=== PATIENT | male | born 1975 | race Caucasian/White ===

== ENCOUNTER 2020-08-27 01:50 | Observation (INO) | payer OTHER ==
[2020-08-27] MEDS ORDERED: SODIUM CHLORIDE 0.9% 1,000 ML IV ONE ×3 (01:56→02:58)
[2020-08-27] MEDS ORDERED: INSULIN REGULAR 100 UNIT/ML VIAL IV STA (01:56)
[2020-08-27] MEDS ORDERED: ONDANSETRON 4 MG/2 ML VIAL IVP STA (02:04)
[2020-08-27 02:13] LABS: Glucose,Whole Blood 566 mg/dL (75-99)
[2020-08-27 02:22] LABS: Basophils % (A) 0 %; Eosinophils # (A) 0.2 k/uL (0-0.7); Eosinophils % (A) 2 %; HCT 44.5 % (39.0-53.0); HGB 13.8 gm/dL (13.0-17.5); Lymphocytes # (A) 1.5 k/uL (1.0-4.8); Lymphocytes % (A) 15 %; MCH 29.8 pg (25.0-35.0); MCHC 31.1 g/dL (31.0-37.0); MCV 95.7 fL (80.0-100.0); Monocytes # (A) 0.5 k/uL (0-1.0); Monocytes % (A) 5 %; Neutrophils # (A) 7.3 k/uL (1.3-7.7); Neutrophils % (A) 76 %; Platelet Count 412 k/uL (150-450); RBC 4.65 m/uL (4.30-5.90); RDW 13.6 % (11.5-15.5); WBC 9.5 k/uL (3.8-10.6)
[2020-08-27 02:33] LABS: ALT 25 U/L (4-49); AST 29 U/L (17-59); African American GFR (CKD) >90 (>60 ml/min/1.73 sqM); Albumin 2.3 g/dL (3.5-5.0); Alkaline Phosphatase 168 U/L (38-126); Anion Gap 3 mmol/L; Blood Urea Nitrogen 11 mg/dL (9-20); Calcium 8.2 mg/dL (8.4-10.2); Carbon Dioxide 28 mmol/L (22-30); Chloride 100 mmol/L (98-107); Non-African American GFR(CKD) >90 (>60 ml/min/1.73 sqM); Potassium 4.5 mmol/L (3.5-5.1); Sodium 131 mmol/L (137-145); Total Bilirubin 0.3 mg/dL (0.2-1.3); Total Protein 5.3 g/dL (6.3-8.2)
--- NOTE | 2020-08-27 02:43 | ED ---
Nausea/Vomiting/Diarrhea HPI - General Chief complaint: Nausea/Vomiting/Diarrhea Stated complaint: Hyperglycemia Time Seen by Provider: 08/27/20 01:51 Source: patient, EMS Mode of arrival: EMS Limitations: no limitations - History of Present Illness Initial comments: patient's 44-year-old man who presents to be evaluated for nausea, diarrhea, and being out of insulin. Patient states he has history of diabetes,but lost his medical insurance so has no physician and has been out of insulin now for 2-3 days. He also has been having diarrhea for approximately same. he has not noted tarry stools or blood. MD complaint: nausea, diarrhea -: days(s) Description of Diarrhea: water Location: diffuse Severity: moderate Quality: cramping Consistency: intermittent Improves with: none Worsens with: none Context: other Associated Symptoms: denies other symptoms - Related Data Home Medications Medication Instructions Recorded Confirmed No Known Home Medications 08/27/20 08/27/20 Allergies Allergy/AdvReac Type Severity Reaction Status Date / Time No Known Allergies Allergy Verified 08/27/20 07:23 Review of Systems ROS Statement: Those systems with pertinent positive or pertinent negative responses have been documented in the HPI. ROS Other: All systems not noted in ROS Statement are negative. Constitutional: Reports: chills, weakness. Denies: fever Respiratory: Denies: cough, dyspnea, wheezes Cardiovascular: Denies: chest pain, palpitations, orthopnea, edema, syncope Gastrointestinal: Reports: abdominal pain, nausea, diarrhea. Denies: vomiting, melena, hematochezia Genitourinary: Denies: dysuria, hematuria Musculoskeletal: Denies: back pain Skin: Denies: rash Neurological: Denies: headache, weakness Past Medical History Past Medical History: Diabetes Mellitus History of Any Multi-Drug Resistant Organisms: None Reported Past Surgical History: No Surgical Hx Reported Past Psychological History: No Psychological Hx Reported Smoking Status: Former smoker Past Alcohol Use History: None Reported Past Drug Use History: Marijuana, Methamphetamine General Exam Limitations: no limitations General appearance: alert, in no apparent distress Head exam: Present: atraumatic, normocephalic Eye exam: Present: normal appearance. Absent: scleral icterus, conjunctival injection ENT exam: Present: mucous membranes dry Neck exam: Present: normal inspection Respiratory exam: Present: normal lung sounds bilaterally. Absent: respiratory distress, wheezes, rales, rhonchi, stridor Cardiovascular Exam: Present: regular rate, normal rhythm, normal heart sounds. Absent: systolic murmur, diastolic murmur, rubs, gallop GI/Abdominal exam: Present: soft. Absent: distended, tenderness, guarding, rebound, rigid, mass, pulsatile mass, hernia Extremities exam: Present: normal inspection, normal capillary refill. Absent: pedal edema, calf tenderness Back exam: Present: normal inspection. Absent: CVA tenderness (R), CVA tenderness (L) Neurological exam: Present: alert Skin exam: Present: warm, dry, intact, normal color. Absent: rash Course Vital Signs 08/27/20 08/27/20 08/27/20 01:52 05:24 06:57 Temperature 97.5 F L Pulse Rate 90 79 82 Respiratory 18 18 18 Rate Blood Pressure 148/86 129/81 128/68 O2 Sat by Pulse 100 98 97 Oximetry 08/27/20 07:25 Temperature Pulse Rate 82 Respiratory 18 Rate Blood Pressure 128/68 O2 Sat by Pulse 97 Oximetry Medical Decision Making - Medical Decision Making this patient's 44-year-old man who phoned EMS for diarrhea and generalized weakness, bleeding he was dehydrated. The patient not havemarkedly elevated blood sugar. The patient also currently homeless and with no ability to obtain insulin. The patient therefore will be admitted until he is able see a director social and have some insulin dispensed and also see if they're able to arrange a fpc for patient - Lab Data Result diagrams: 08/27/20 02:00 08/27/20 04:29 Lab Results 08/27/20 08/27/20 08/27/20 Range/Units 02:00 02:00 02:00 WBC 9.5 (3.8-10.6) k/uL RBC 4.65 (4.30-5.90) m/uL Hgb 13.8 (13.0-17.5) gm/dL Hct 44.5 (39.0-53.0) % MCV 95.7 (80.0-100.0) fL MCH 29.8 (25.0-35.0) pg MCHC 31.1 (31.0-37.0) g/dL RDW 13.6 (11.5-15.5) % Plt Count 412 (150-450) k/uL Neutrophils % 76 % Lymphocytes % 15 % Monocytes % 5 % Eosinophils % 2 % Basophils % 0 % Neutrophils # 7.3 (1.3-7.7) k/uL Lymphocytes # 1.5 (1.0-4.8) k/uL Monocytes # 0.5 (0-1.0) k/uL Eosinophils # 0.2 (0-0.7) k/uL Basophils # 0.0 (0-0.2) k/uL Sodium 131 L (137-145) mmol/L Potassium 4.5 (3.5-5.1) mmol/L Chloride 100 (98-107) mmol/L Carbon Dioxide 28 (22-30) mmol/L Anion Gap 3 mmol/L BUN 11 (9-20) mg/dL Creatinine 0.77 (0.66-1.25) mg/dL Est GFR (CKD-EPI)AfAm >90 (>60 ml/min/1.73 sqM) Est GFR (CKD-EPI)NonAf >90 (>60 ml/min/1.73 sqM) Glucose 592 H* (74-99) mg/dL POC Glucose (mg/dL) (75-99) mg/dL POC Glu Dairy Clerk ID Plasma Lactic Acid Jason 1.2 (0.7-2.0) mmol/L Calcium 8.2 L (8.4-10.2) mg/dL Total Bilirubin 0.3 (0.2-1.3) mg/dL AST 29 (17-59) U/L ALT 25 (4-49) U/L Alkaline Phosphatase 168 H (38-126) U/L Total Protein 5.3 L (6.3-8.2) g/dL Albumin 2.3 L (3.5-5.0) g/dL Acetone, Qual Positive (Negative) 08/27/20 08/27/20 08/27/20 Range/Units 02:12 04:29 07:02 WBC (3.8-10.6) k/uL RBC (4.30-5.90) m/uL Hgb (13.0-17.5) gm/dL Hct (39.0-53.0) % MCV (80.0-100.0) fL MCH (25.0-35.0) pg MCHC (31.0-37.0) g/dL RDW (11.5-15.5) % Plt Count (150-450) k/uL Neutrophils % % Lymphocytes % % Monocytes % % Eosinophils % % Basophils % % Neutrophils # (1.3-7.7) k/uL Lymphocytes # (1.0-4.8) k/uL Monocytes # (0-1.0) k/uL Eosinophils # (0-0.7) k/uL Basophils # (0-0.2) k/uL Sodium 134 L (137-145) mmol/L Potassium 3.4 L (3.5-5.1) mmol/L Chloride 108 H (98-107) mmol/L Carbon Dioxide 25 (22-30) mmol/L Anion Gap 1 mmol/L BUN 10 (9-20) mg/dL Creatinine 0.67 (0.66-1.25) mg/dL Est GFR (CKD-EPI)AfAm >90 (>60 ml/min/1.73 sqM) Est GFR (CKD-EPI)NonAf >90 (>60 ml/min/1.73 sqM) Glucose 294 H (74-99) mg/dL POC Glucose (mg/dL) 566 H 280 H (75-99) mg/dL POC Glu Dairy Clerk ID Camila Amor Taylor Plasma Lactic Acid Jason (0.7-2.0) mmol/L Calcium 7.2 L (8.4-10.2) mg/dL Total Bilirubin (0.2-1.3) mg/dL AST (17-59) U/L ALT (4-49) U/L Alkaline Phosphatase (38-126) U/L Total Protein (6.3-8.2) g/dL Albumin (3.5-5.0) g/dL Acetone, Qual Negative (Negative) - EKG Data -: EKG Interpreted by In EKG shows normal: sinus rhythm, axis (normal), intervals (WV interval 144 ms, QTC 525 ms, both are normal. QRS duration 136 ms, prolonged consistent with right bundle-branch block), QRS complexes (right bundle-branch block pattern.) Rate: normal (rate 89 bpm) Disposition Clinical Impression: Hyperglycemia Disposition: ADMITTED IP TO THIS [facility] Condition: Fair Referrals: None,Stated [Primary Care Provider] - 1-2 days
[2020-08-27 02:44] LABS: Glucose 592 mg/dL (74-99)
[2020-08-27 05:06] LABS: African American GFR (CKD) >90 (>60 ml/min/1.73 sqM); Anion Gap 1 mmol/L; Blood Urea Nitrogen 10 mg/dL (9-20); Calcium 7.2 mg/dL (8.4-10.2); Carbon Dioxide 25 mmol/L (22-30); Chloride 108 mmol/L (98-107); Glucose 294 mg/dL (74-99); Non-African American GFR(CKD) >90 (>60 ml/min/1.73 sqM); Potassium 3.4 mmol/L (3.5-5.1); Sodium 134 mmol/L (137-145)
[2020-08-27] MEDS ORDERED: ACETAMINOPHEN TAB 325 MG TAB PO PRN (07:01)
[2020-08-27] MEDS ORDERED: NALOXONE 0.4 MG/ML 1 ML VIAL IV PRN (07:01)
[2020-08-27 07:03] LABS: Glucose,Whole Blood 280 mg/dL (75-99)
[2020-08-27] MEDS ORDERED: Potassium Replacement Protocol 1 EACH MISC MISCELLANE PRN (07:26)
[2020-08-27 08:10] LABS: Appearance,Urine Clear (Clear); Bilirubin,Urine Negative (Negative); Blood,Urine Small (Negative); Color,Urine Light Yellow; Glucose,Urine (UA) 4+ (Negative); Ketones,Urine Negative (Negative); Leukocyte Esterase,Urine Negative (Negative); Mucus,Urine Rare /hpf; Nitrite,Urine Negative (Negative); Protein,Urine 2+ (Negative); RBC,Urine 2 /hpf (0-5); Specific Gravity,Urine 1.017 (1.001-1.035); Urobilinogen,Urine <2.0 mg/dL (<2.0); WBC,Urine 1 /hpf (0-5)
[2020-08-27] MEDS: SODIUM CHLORIDE 0.9% 1,000 ML IV SCH ×2 (08:44→17:18)
[2020-08-27 09:00] VITALS: RESP 14
[2020-08-27] MEDS ORDERED: INSULN ASP PRT/INSULIN ASPART 100 UNIT/ML 10 ML VIAL SQ SCH ×2 (09:15→17:30)
[2020-08-27] MEDS ORDERED: POTASSIUM CHLORIDE ER 20 MEQ TAB.ER PO STA (09:30)
[2020-08-27] MEDS ORDERED: INFLUENZA VACCINE (6 MOS+) 60 MCG/0.5 ML SYRINGE IM ONE (09:43)
[2020-08-27] MEDS ORDERED: PNEUMOCOCCAL VACC-PNEUMOVAX 23 25 MCG/0.5 ML VIAL IM ONE (09:43)
--- NOTE | 2020-08-27 09:49 | P.HPIM ---
History of Present Illness H&P Date: 08/27/20 This H&P will also serve as a discharge summary. Is a 44-year-old male with PMH of type 1 diabetes mellitus diagnosed since seventh grade that presents to the hospital for hyperglycemia and chronic d iarrhea. Patient reports feeling lightheaded and being out of insulin over the last 2 days, he realized his blood sugars were too high which prompted this admission. He reports chronic diarrhea with meals. He denies any hematochezia. He also reports neuropathic pain in his bilateral lower extremities. Patient reports recently losing insurance coverage. Patient states that he is homeless. He has been bouncing from place to place and staying with friends but does not currently have a place to stay. He reports polyuria and polydipsia. Patient states he takes 7030 insulin 25 units in the morning and 15 units at night. Patient states that his glucometer broke. He does not have any diabetic supplies. He denies any headache, lower extremity edema, vomiting, fever or chills, cough, chest pain, shortness of breath, palpitations, changes in urination. No changes in appetite or weight. In the ED, his vital signs are stable. CBC was unremarkable. CMP showed sodium of 131, glucose of 592, alkaline phosphatase 168. Urinalysis showed 2+ protein, 4+ glucose, small blood. Acetone was initially positive and negative on repeat. He was given 6 units of IV insulin and admitted for further management and observation. Review of Systems Pertinent positives and negatives as discussed in HPI, a complete review of systems was performed and all other systems are negative. 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 History of Any Multi-Drug Resistant Organisms: None Reported Past Surgical History: No Surgical Hx Reported Past Anesthesia/Blood Transfusion Reactions: No Reported Reaction, Motion Sickness Additional Past Anesthesia/Blood Transfusion Reaction / Comment(s): Pt has clausterphobia Past Psychological History: No Psychological Hx Reported Additional Psychological History / Comment(s): Pt states he is homeless, sleeps in his car or on people's couches. He states his glucometer is broken, he ran out of insulin 2-3 days ago. He states he does not have a PCP and has not had one for months. He states he has no money. Smoking Status: Former smoker Past Alcohol Use History: None Reported Additional Past Alcohol Use History / Comment(s): Pt started smoking in 1996 and states he was a light smoker, he quit in 2018. Past Drug Use History: Marijuana, Methamphetamine Additional Drug Use History / Comment(s): Pt states he occasionally uses marijuana and meth. He last used 2 days ago. - Past Family History Father Family Medical History: No Reported History Additional Family Medical History / Comment(s): Father is healthy Mother Family Medical History: Myocardial Infarction ([place]) Additional Family Medical History / Comment(s): Mother of a [place] in her 60s. Medications and Allergies Home Medications Medication Instructions Recorded Confirmed Type Alcohol Antiseptic Pads [Alcohol 1 each TP AC-TID #90 med..pad 08/27/20 Rx Swabs] Blood Sugar Diagnostic [Test 1 each MC AC-TID #90 strip 08/27/20 Rx Strips] Insuln Asp Prt/Insulin Aspart 15 unit SQ AC-SUPPER #2 vial 08/27/20 Rx [NovoLOG MIX 70-30 VIAL] Insuln Asp Prt/Insulin Aspart 25 unit SQ AC-BRKFST #2 vial 08/27/20 Rx [NovoLOG MIX 70-30 VIAL] Lancets 1 each MC AC-TID #90 each 08/27/20 Rx Syringe and Needle,Insulin,1Ml 1 syr SQ BID-W/MEALS #60 syr 08/27/20 Rx [Insulin Syringe 30G 5/16" 1ml] Allergies Allergy/AdvReac Type Severity Reaction Status Date / Time No Known Allergies Allergy Verified 08/27/20 07:23 Physical Exam Vitals: Vital Signs Temp Pulse Pulse Resp BP BP Pulse Ox 08/27/20 09:00 98 F 86 14 103/58 100 08/27/20 07:25 82 18 128/68 97 08/27/20 06:57 82 18 128/68 97 08/27/20 05:24 79 18 129/81 98 08/27/20 01:52 97.5 F L 90 18 148/86 100 Intake and Output 08/26/20 08/27/20 08/27/20 22:59 06:59 14:59 Other: Voiding Method Toilet # Voids 1 Weight 54.431 kg General: [non toxic], [no distress], [appears at stated age] Derm: [warm], [dry] Head: [atraumatic], [normocephalic], [symmetric] Eyes: [EOMI], [no lid lag], [anicteric sclera] Mouth: [no lip lesion], [mucus membranes moist] Cardiovascular: [S1S2 reg], [no murmur], [positive posterior tibial pulse bilateral], Lungs: [CTA bilateral], [no rhonchi, no rales] , [no accessory muscle use] Abdominal: [soft], [ nontender to palpation], [no guarding], [no appreciable organomegaly] Ext: [no gross muscle atrophy], [no edema], [no contractures] Neuro: [ CN II-XI grossly intact], [no focal neuro deficits] Psych: [Alert], [oriented], [appropriate affect] Results CBC & Chem 7: 08/27/20 02:00 08/27/20 04:29 Labs: Abnormal Lab Results - Last 24 Hours (Table) 08/27/20 08/27/20 08/27/20 Range/Units 02:00 02:00 02:12 Sodium 131 L (137-145) mmol/L Potassium (3.5-5.1) mmol/L Chloride (98-107) mmol/L Glucose 592 H* (74-99) mg/dL POC Glucose (mg/dL) 566 H (75-99) mg/dL Calcium 8.2 L (8.4-10.2) mg/dL Alkaline Phosphatase 168 H (38-126) U/L Total Protein 5.3 L (6.3-8.2) g/dL Albumin 2.3 L (3.5-5.0) g/dL Urine Protein 2+ H (Negative) Urine Glucose (UA) 4+ H (Negative) Urine Blood Small H (Negative) Urine Mucus Rare H (None) /hpf 08/27/20 08/27/20 Range/Units 04:29 07:02 Sodium 134 L (137-145) mmol/L Potassium 3.4 L (3.5-5.1) mmol/L Chloride 108 H (98-107) mmol/L Glucose 294 H (74-99) mg/dL POC Glucose (mg/dL) 280 H (75-99) mg/dL Calcium 7.2 L (8.4-10.2) mg/dL Alkaline Phosphatase (38-126) U/L Total Protein (6.3-8.2) g/dL Albumin (3.5-5.0) g/dL Urine Protein (Negative) Urine Glucose (UA) (Negative) Urine Blood (Negative) Urine Mucus (None) /hpf Assessment and Plan Assessment: Diabetes mellitus with hyperglycemia Pseudohyponatremia Hypokalemia Peripheral neuropathy Chronic diarrhea Patient's current blood glucose has decreased from 592 to 280. He reports taking 7030 insulin 25 units in the morning and 15 units at bedtime. Tolerating diet well. Plans: He'll be placed back on home dose of insulin. Hypoglycemic p recautions. Regular Accu-Cheks. Consult diabetes education. Consult hospice social worker for homelessness and diabetic supplies. His sodium is improved from 131-134 with correction of his blood sugars. His sodium is within normal limits when corrected for hyperglycemia. Plans: Continue to monitor. Repeat BMP this afternoon. Potassium 3.4. Plans: Replace via protocol. Repeat BMP this afternoon. Plans: Tylenol as needed for pain. Plans: Patient will need adequate follow-up in the outpatient setting. This is being chronic for a number of years. He would benefit from colonoscopy. DVT prophylaxis: [SCD boots] Discussed with: [Patient] Anticipated discharge: [Today] Anticipated discharge place: [Long-Term] A total of [35] minutes was spent on the care of this complex patient more than 50% of the time was spent in counseling and care coordination. Patient names his brother Shen decision-maker if he can't make decisions for himself. Patient would like to be full code.
[2020-08-27 11:35] LABS: Glucose,Whole Blood 224 mg/dL (75-99)
[2020-08-27 12:19] LABS: African American GFR (CKD) >90 (>60 ml/min/1.73 sqM); Anion Gap 0 mmol/L; Blood Urea Nitrogen 9 mg/dL (9-20); Calcium 7.4 mg/dL (8.4-10.2); Carbon Dioxide 27 mmol/L (22-30); Chloride 106 mmol/L (98-107); Glucose 248 mg/dL (74-99); Non-African American GFR(CKD) >90 (>60 ml/min/1.73 sqM); Potassium 3.6 mmol/L (3.5-5.1); Sodium 133 mmol/L (137-145)
[2020-08-27 14:11] VITALS: BP 117/75; PULSE 85; TEMP 98.4
[2020-08-27 16:40] LABS: Glucose,Whole Blood 146 mg/dL (75-99)
== END 2020-08-27 18:11 | disposition home or self-care (01) ==
LOC: EC 01:50 → 1SOBS 07:01
PROVIDERS: ADMIT Internal Medicine; ATTEND Internal Medicine
DX: E10.65 Type 1 diabetes mellitus with hyperglycemia (principal); R11.2 Nausea with vomiting, unspecified; K52.9 Noninfective gastroenteritis and colitis, unspecified; E87.6 Hypokalemia; G62.9 Polyneuropathy, unspecified; Z59.0 Homelessness; Z79.4 Long term (current) use of insulin; Z82.49 Family history of ischemic heart disease and other diseases of the circulatory system; Z87.891 Personal history of nicotine dependence
CPT/HCPCS: 96361; 96374; 99285; 36415; 93005; 80053; 80048; 82009; 83605; 85025; 81001; 90732; 90686; G0378; G0008; G0009; J2405

== ENCOUNTER 2020-08-30 11:48 | Inpatient (IN) | payer OTHER ==
[2020-08-30] MEDS ORDERED: ASPIRIN 81 MG PO STA (11:54)
[2020-08-30] MEDS ORDERED: NITROGLYCERIN OINT 1 INCH/GM PACKET TOPICAL STA (11:54)
[2020-08-30] MEDS ORDERED: SODIUM CHLORIDE 0.9% 1,000 ML IV ONE (11:54)
--- NOTE | 2020-08-30 11:57 | ED ---
General Adult HPI - General Chief complaint: Chest Pain Stated complaint: chest pain Time Seen by Provider: 08/30/20 11:50 Source: patient, RN notes reviewed, old records reviewed Mode of arrival: EMS Limitations: no limitations - History of Present Illness Initial comments: This is a 44-year-old male with a past medical history significant for diabetes. Patient also states he used to be a smoker up until about 2 years ago. Patient also states he has a family history of heart disease. Patient states this morning started having left-sided chest pain and it got worse so he decided come in. Patient states he was not short of breath and it did not radiate anywhere however taking nitroglycerin on the way and did improve pain. Patient states the pain is back again. Patient denies any recent fever chills or cough per patient states his sugars have been well over 500 last couple of days. Patient denies any abdominal pain patient denies any nausea vomiting but states he does have diarrhea. Patient denies any headache patient denies numbness weakness. Patient denies any near syncope or dizziness. - Related Data Previous Rx's Medication Instructions Recorded Insuln Asp Prt/Insulin Aspart 15 unit SQ AC-SUPPER #2 vial 08/27/20 [NovoLOG MIX 70-30 VIAL] Insuln Asp Prt/Insulin Aspart 25 unit SQ AC-BRKFST #2 vial 08/27/20 [NovoLOG MIX 70-30 VIAL] Allergies Allergy/AdvReac Type Severity Reaction Status Date / Time No Known Allergies Allergy Verified 08/30/20 12:25 Review of Systems ROS Statement: Those systems with pertinent positive or pertinent negative responses have been documented in the HPI. ROS Other: All systems not noted in ROS Statement are negative. 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 History of Any Multi-Drug Resistant Organisms: None Reported Past Surgical History: No Surgical Hx Reported Past Anesthesia/Blood Transfusion Reactions: No Reported Reaction, Motion Sickness Additional Past Anesthesia/Blood Transfusion Reaction / Comment(s): Pt has clausterphobia Past Psychological History: No Psychological Hx Reported Smoking Status: Former smoker Past Alcohol Use History: None Reported Past Drug Use History: Marijuana, Methamphetamine - Past Family History Father Family Medical History: No Reported History Additional Family Medical History / Comment(s): Father is healthy Mother Family Medical History: Myocardial Infarction ([place]) Additional Family Medical History / Comment(s): Mother of a [place] in her 60s. General Exam - General Exam Comments Initial Comments: GENERAL: Patient is well-developed and well-nourished. Patient is nontoxic and well- hydrated and is in mild distress. ENT: Neck is soft and supple. No significant lymphadenopathy is noted. Oropharynx is clear. Moist mucous membranes. Neck has full range of motion without eliciting any pain. EYES: The sclera were anicteric and conjunctiva were pink and moist. Extraocular movements were intact and pupils were equal round and reactive to light. Eyelids were unremarkable. PULMONARY: Unlabored respirations. Good breath sounds bilaterally. No audible rales rhonchi or wheezing was noted. CARDIOVASCULAR: Patient is tachycardic at about 105 beats a minute. ABDOMEN: Soft and nontender with normal bowel sounds. SKIN: Skin is clear with no lesions or rashes and otherwise unremarkable. NEUROLOGIC: Patient is alert and oriented x3. Cranial nerves II through XII are grossly intact. Motor and sensory are also intact. Normal speech, volume and content. Symmetrical smile. MUSCULOSKELETAL: Normal extremities with adequate strength and full range of motion. LYMPHATICS: No significant lymphadenopathy is noted PSYCHIATRIC: Normal psychiatric evaluation. Limitations: no limitations Course Vital Signs 08/30/20 08/30/20 11:51 12:33 Temperature 98.2 F Pulse Rate 96 Respiratory 18 Rate Blood Pressure 124/82 O2 Sat by Pulse 99 Oximetry Medical Decision Making - Medical Decision Making EKG shows sinus tachycardia at 108 bpm DC interval 160 QRS is under 24 QT interval 370 QTC is 495. Chest x-ray shows no acute abnormality. I gave the patient NovoLog 12 units for the elevated sugar glucose. I spoke with some physicians agreed to admit the patient admitted the patient I consult cardiology. I repeated the patient's troponins every 3 hours. And I put the patient on NovoLog sliding scale - Lab Data Result diagrams: 08/30/20 12:11 08/30/20 12:11 Lab Results 08/30/20 08/30/20 08/30/20 Range/Units 12:01 12:11 12:11 WBC 10.9 H (3.8-10.6) k/uL RBC 3.97 L (4.30-5.90) m/uL Hgb 12.3 L (13.0-17.5) gm/dL Hct 37.8 L (39.0-53.0) % MCV 95.3 (80.0-100.0) fL MCH 30.9 (25.0-35.0) pg MCHC 32.4 (31.0-37.0) g/dL RDW 13.4 (11.5-15.5) % Plt Count 377 (150-450) k/uL Neutrophils % 76 % Lymphocytes % 15 % Monocytes % 6 % Eosinophils % 2 % Basophils % 1 % Neutrophils # 8.3 H (1.3-7.7) k/uL Lymphocytes # 1.6 (1.0-4.8) k/uL Monocytes # 0.6 (0-1.0) k/uL Eosinophils # 0.2 (0-0.7) k/uL Basophils # 0.1 (0-0.2) k/uL PT 9.3 (9.0-12.0) sec INR 0.9 (<1.2) APTT 22.5 (22.0-30.0) sec Sodium (137-145) mmol/L Potassium (3.5-5.1) mmol/L Chloride (98-107) mmol/L Carbon Dioxide (22-30) mmol/L Anion Gap mmol/L BUN (9-20) mg/dL Creatinine (0.66-1.25) mg/dL Est GFR (CKD-EPI)AfAm (>60 ml/min/1.73 sqM) Est GFR (CKD-EPI)NonAf (>60 ml/min/1.73 sqM) Glucose (74-99) mg/dL POC Glucose (mg/dL) 519 H (75-99) mg/dL POC Glu Clinical Esthetician ID Gonzalez, Elizabeth Calcium (8.4-10.2) mg/dL Magnesium (1.6-2.3) mg/dL Total Bilirubin (0.2-1.3) mg/dL AST (17-59) U/L ALT (4-49) U/L Alkaline Phosphatase (38-126) U/L Troponin I (0.000-0.034) ng/mL Total Protein (6.3-8.2) g/dL Albumin (3.5-5.0) g/dL Acetone, Qual (Negative) 08/30/20 08/30/20 Range/Units 12:11 12:11 WBC (3.8-10.6) k/uL RBC (4.30-5.90) m/uL Hgb (13.0-17.5) gm/dL Hct (39.0-53.0) % MCV (80.0-100.0) fL MCH (25.0-35.0) pg MCHC (31.0-37.0) g/dL RDW (11.5-15.5) % Plt Count (150-450) k/uL Neutrophils % % Lymphocytes % % Monocytes % % Eosinophils % % Basophils % % Neutrophils # (1.3-7.7) k/uL Lymphocytes # (1.0-4.8) k/uL Monocytes # (0-1.0) k/uL Eosinophils # (0-0.7) k/uL Basophils # (0-0.2) k/uL PT (9.0-12.0) sec INR (<1.2) APTT (22.0-30.0) sec Sodium 135 L (137-145) mmol/L Potassium 4.3 (3.5-5.1) mmol/L Chloride 109 H (98-107) mmol/L Carbon Dioxide 27 (22-30) mmol/L Anion Gap -1 mmol/L BUN 19 (9-20) mg/dL Creatinine 0.67 (0.66-1.25) mg/dL Est GFR (CKD-EPI)AfAm >90 (>60 ml/min/1.73 sqM) Est GFR (CKD-EPI)NonAf >90 (>60 ml/min/1.73 sqM) Glucose 530 H* (74-99) mg/dL POC Glucose (mg/dL) (75-99) mg/dL POC Glu Clinical Esthetician ID Calcium 7.7 L (8.4-10.2) mg/dL Magnesium 2.2 (1.6-2.3) mg/dL Total Bilirubin 0.3 (0.2-1.3) mg/dL AST 27 (17-59) U/L ALT 23 (4-49) U/L Alkaline Phosphatase 153 H (38-126) U/L Troponin I <0.012 (0.000-0.034) ng/mL Total Protein 4.7 L (6.3-8.2) g/dL Albumin 2.0 L (3.5-5.0) g/dL Acetone, Qual Negative (Negative) Disposition Clinical Impression: Chest pain, Hyperglycemia Disposition: ADMITTED IP TO THIS HOSP Referrals: None,Stated [Primary Care Provider] - 1-2 days Time of Disposition: 13:40
[2020-08-30 12:02] LABS: Glucose,Whole Blood 519 mg/dL (75-99)
[2020-08-30 12:26] LABS: Basophils # (A) 0.1 k/uL (0-0.2); Basophils % (A) 1 %; Eosinophils # (A) 0.2 k/uL (0-0.7); Eosinophils % (A) 2 %; HCT 37.8 % (39.0-53.0); HGB 12.3 gm/dL (13.0-17.5); Lymphocytes # (A) 1.6 k/uL (1.0-4.8); Lymphocytes % (A) 15 %; MCH 30.9 pg (25.0-35.0); MCHC 32.4 g/dL (31.0-37.0); MCV 95.3 fL (80.0-100.0); Mean Platelet Volume 7.4; Monocytes # (A) 0.6 k/uL (0-1.0); Monocytes % (A) 6 %; Neutrophils # (A) 8.3 k/uL (1.3-7.7); Neutrophils % (A) 76 %; Platelet Count 377 k/uL (150-450); RBC 3.97 m/uL (4.30-5.90); RDW 13.4 % (11.5-15.5); WBC 10.9 k/uL (3.8-10.6)
[2020-08-30 12:36] LABS: ALT 23 U/L (4-49); AST 27 U/L (17-59); African American GFR (CKD) >90 (>60 ml/min/1.73 sqM); Alkaline Phosphatase 153 U/L (38-126); Anion Gap -1 mmol/L; Blood Urea Nitrogen 19 mg/dL (9-20); Calcium 7.7 mg/dL (8.4-10.2); Carbon Dioxide 27 mmol/L (22-30); Chloride 109 mmol/L (98-107); Magnesium 2.2 mg/dL (1.6-2.3); Non-African American GFR(CKD) >90 (>60 ml/min/1.73 sqM); Potassium 4.3 mmol/L (3.5-5.1); Sodium 135 mmol/L (137-145); Total Bilirubin 0.3 mg/dL (0.2-1.3); Total Protein 4.7 g/dL (6.3-8.2)
[2020-08-30 12:42] LABS: Glucose 530 mg/dL (74-99); INR 0.9 (<1.2); Partial Thromboplastin Time 22.5 sec (22.0-30.0); Prothrombin Time 9.3 sec (9.0-12.0)
--- NOTE | 2020-08-30 12:45 | XR ---
EXAMINATION TYPE: XR chest 2V DATE OF EXAM: 08/30/2020 COMPARISON: None INDICATION: Chest pain TECHNIQUE: Frontal and lateral views of the chest are obtained. FINDINGS: The heart size is normal. The pulmonary vasculature is normal. There may be a small density measuring 0.8 cm in the left midlung. CT chest could be performed for ad ditional evaluation. Lung wasserman are otherwise clear. IMPRESSION: 1. No acute pulmonary process. 2. Possible nodule measuring 0.8 cm left midlung. Additional evaluation with CT chest is recommended.
[2020-08-30] MEDS ORDERED: INSULIN ASPART (NovoLOG) 100 UNIT/ML VIAL SQ ONE (13:11)
[2020-08-30] MEDS ORDERED: NITROGLYCERIN SL TABS 0.4 MG TAB SUBLINGUAL PRN (13:40)
[2020-08-30 13:52] LABS: Glucose,Whole Blood 534 mg/dL (75-99)
[2020-08-30] MEDS ORDERED: traMADol 50 MG TAB PO PRN (14:39)
[2020-08-30] MEDS ORDERED: ONDANSETRON 4 MG/2 ML VIAL IVP PRN (14:39)
[2020-08-30] MEDS ORDERED: NALOXONE 0.4 MG/ML 1 ML VIAL IV PRN (14:39)
--- NOTE | 2020-08-30 14:44 | P.HPIM ---
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 In the ER he underwent an extensive evaluation. His initial vital signs are within normal limits. Initial laboratory analysis showed white blood cell count of 10.9, hemoglobin 12.3, sodium 135, chloride 1.9, glucose 5:30 patient was not acidotic and anion gap was normal. Initial troponin was negative and EKG sinus tachycardia at a rate of 108 with possible intraventricular conduction delay but no signs of ST segment elevation. He received aspirin and nitro. He reported subjective improvement in pain with nitroglycerin. Of note patient was hospitalized here on 08/27 after running out of his insulin. He was noted to be homeless without insurance cards or ID cards. He was given a one-month supply of insulin is provided by the hospital. Patient seen and examined at bedside. He reports that after leaving the hospital he was laying down and started having right-sided chest pain. He reports chronic shortness of breath, nausea, intermittent dizziness, int ermittent lightheadedness, and tingling down in his hands. It is difficult to discern whether or not these are new or old symptoms. He does state that her shortness of breath with their prior to his chest discomfort. He denies any family history of coronary artery disease. He reports that his chest pain is worse with exertion but also occurs at rest. He reports that he has pain when he is moving his right shoulder. He is asking for something for pain and something to eat or drink. We had an extensive conversation that if he is having ongoing chest pain he should not be eating or drinking anything in case he would require emergent revascularization. Review of Systems Pertinent positives and negatives as discussed in HPI, a complete review of systems was performed and all other systems are negative. 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 History of Any Multi-Drug Resistant Organisms: None Reported Past Surgical History: No Surgical Hx Reported Past Anesthesia/Blood Transfusion Reactions: No Reported Reaction, Motion Sickness Additional Past Anesthesia/Blood Transfusion Reaction / Comment(s): Pt has clausterphobia Past Psychological History: No Psychological Hx Reported Smoking Status: Former smoker Past Alcohol Use History: None Reported Past Drug Use History: Marijuana, Methamphetamine - Past Family History Father Family Medical History: No Reported History Additional Family Medical History / Comment(s): Father is healthy Mother Family Medical History: Myocardial Infarction (MA) Additional Family Medical History / Comment(s): Mother of a MA in her 60s. Medications and Allergies Home Medications Medication Instructions Recorded Confirmed Type Insuln Asp Prt/Insulin Aspart 15 unit SQ AC-SUPPER #2 vial 08/27/20 08/30/20 Rx [NovoLOG MIX 70-30 VIAL] Insuln Asp Prt/Insulin Aspart 25 unit SQ AC-BRKFST #2 vial 08/27/20 08/30/20 Rx [NovoLOG MIX 70-30 VIAL] Allergies Allergy/AdvReac Type Severity Reaction Status Date / Time No Known Allergies Allergy Verified 08/30/20 12:25 Physical Exam Osteopathic Statement: *. No significant issues noted on an osteopathic structural exam other than those noted in the History and Physical/Consult. Vitals: Vital Signs Temp Pulse Resp BP Pulse Ox 08/30/20 14:14 146/110 08/30/20 13:47 96 18 142/92 97 08/30/20 12:33 96 18 124/82 99 08/30/20 11:51 98.2 F Intake and Output 08/29/20 08/30/20 08/30/20 23:59 06:59 14:59 Other: Weight 56.699 kg General: non toxic, no distress, appears older than stated age, unkempt Derm: warm, dry Head: atraumatic, normocephalic, symmetric Eyes: EOMI, no lid lag, anicteric sclera, pupils equal round reactive to light ENT: Nose and ears atraumatic, no thrush, no pharyngeal erythema Neck: No thyromegaly, no cervical lymphadenopathy, trachea midline, supple Mouth: no lip lesion, mucus membranes moist Cardiovascular: S1S2 reg, no murmur, positive posterior tibial pulse bilateral, no edema, capillary refill less than 2 seconds, positive chest pain reproducible to palpation of right chest wall Lungs: clear to ascultation bilateral, no ronchi, no rales, no wheeze, no accessory muscle use Abdominal: soft, nontender to palpation, no guarding, no appreciable organomegaly, normal bowel sounds Ext: no gross muscle atrophy, muscle strength muscle strength 5 out of 5 in all 4 extremities, no contractures Neuro: CN II-XI grossly intact, light touch intact all 4 extremities, finger to nose within normal limits, Psych: Alert, oriented, appropriate affect Results CBC & Chem 7: 08/30/20 12:11 08/30/20 12:11 Labs: Abnormal Lab Results - Last 24 Hours (Table) 08/30/20 08/30/20 08/30/20 Range/Units 12:01 12:11 12:11 WBC 10.9 H (3.8-10.6) k/uL RBC 3.97 L (4.30-5.90) m/uL Hgb 12.3 L (13.0-17.5) gm/dL Hct 37.8 L (39.0-53.0) % Neutrophils # 8.3 H (1.3-7.7) k/uL Sodium 135 L (137-145) mmol/L Chloride 109 H (98-107) mmol/L Glucose 530 H* (74-99) mg/dL POC Glucose (mg/dL) 519 H (75-99) mg/dL Calcium 7.7 L (8.4-10.2) mg/dL Alkaline Phosphatase 153 H (38-126) U/L Total Protein 4.7 L (6.3-8.2) g/dL Albumin 2.0 L (3.5-5.0) g/dL 08/30/20 Range/Units 13:44 WBC (3.8-10.6) k/uL RBC (4.30-5.90) m/uL Hgb (13.0-17.5) gm/dL Hct (39.0-53.0) % Neutrophils # (1.3-7.7) k/uL Sodium (137-145) mmol/L Chloride (98-107) mmol/L Glucose (74-99) mg/dL POC Glucose (mg/dL) 534 H (75-99) mg/dL Calcium (8.4-10.2) mg/dL Alkaline Phosphatase (38-126) U/L Total Protein (6.3-8.2) g/dL Albumin (3.5-5.0) g/dL Chest x-ray: report reviewed Thrombosis Risk Factor Assmnt - DVT/VTE Prophylaxis DVT/VTE Prophylaxis: Pharmacologic Prophylaxis ordered Assessment and Plan Assessment: Chest pain -Suspect noncardiac -Aspirin, trend troponins -Cardiology evaluation -Echocardiogram -Telemetry -Check lipid profile - nitro Diabetes mellitus type 1 with hyperglycemia -Restart 70/30 insulin with improved patient's blood sugars significantly with 1 dose last hospitalization -Follow blood sugars -Has just met with tobacco educator and dietitian Possible pulmonary nodule -Recommend outpatient CT of the chest Social stressors -Homelessness: Met with manager social services last hospital stay, patient does not have an ID card and therefore cannot be seen at a homeless longterm. [facility] as he does not have [facility]. Patient has been instructed multiple times that he needs to obtain identification. GERD -Start IV PPI The patient is placed in observation with an anticipated less than 2 midnight stay for evaluation of chest pain. Surrogate decision-maker: Shen DVT prophylaxis: SCDs Discussed with: Patient, nursing, ED physician Anticipated discharge date: in AM Anticipated discharge place: Return to friends home A total of 45 minutes was spent on the care of this complex patient more than 50% of the time was spent in counseling and care coordination.
[2020-08-30] MEDS: SODIUM CHLORIDE 0.9% 1,000 ML IV SCH (15:08)
[2020-08-30] MEDS: PANTOPRAZOLE 40 MG/10 ML VIAL IVP SCH (15:08)
[2020-08-30 16:32] LABS: Glucose,Whole Blood 323 mg/dL (75-99)
[2020-08-30] MEDS: NITROGLYCERIN OINT 1 INCH/GM PACKET TOPICAL SCH (16:57)
[2020-08-30] MEDS: INSULN ASP PRT/INSULIN ASPART 100 UNIT/ML 10 ML VIAL SQ SCH (16:58)
[2020-08-30] MEDS ORDERED: INSULIN ASPART (NovoLOG) 100 UNIT/ML VIAL SQ SCH (17:30)
[2020-08-30 20:10] LABS: Glucose,Whole Blood 169 mg/dL (75-99)
[2020-08-30 22:37] LABS: Glucose,Whole Blood 81 mg/dL (75-99)
[2020-08-30 23:31] LABS: Hemoglobin A1C 15.6 % (4.0-6.0)
[2020-08-31] MEDS: NITROGLYCERIN OINT 1 INCH/GM PACKET TOPICAL SCH ×5 (00:06→23:57)
[2020-08-31 00:54] LABS: Glucose,Whole Blood 88 mg/dL (75-99)
[2020-08-31 03:51] LABS: Glucose,Whole Blood 77 mg/dL (75-99)
[2020-08-31] MEDS: SODIUM CHLORIDE 0.9% 1,000 ML IV SCH ×3 (06:10→17:17)
[2020-08-31 06:27] LABS: Glucose,Whole Blood 97 mg/dL (75-99)
[2020-08-31 08:09] LABS: HCT 32.4 % (39.0-53.0); HGB 10.5 gm/dL (13.0-17.5); MCH 30.3 pg (25.0-35.0); MCHC 32.4 g/dL (31.0-37.0); MCV 93.7 fL (80.0-100.0); Mean Platelet Volume 6.7; Platelet Count 367 k/uL (150-450); RBC 3.46 m/uL (4.30-5.90); RDW 13.5 % (11.5-15.5); WBC 13.8 k/uL (3.8-10.6)
[2020-08-31 08:43] LABS: African American GFR (CKD) >90 (>60 ml/min/1.73 sqM); Anion Gap -2 mmol/L; Blood Urea Nitrogen 15 mg/dL (9-20); Calcium 7.1 mg/dL (8.4-10.2); Carbon Dioxide 28 mmol/L (22-30); Chloride 109 mmol/L (98-107); Cholesterol 227 mg/dL (<200); Glucose 99 mg/dL (74-99); HDL Cholesterol 68 mg/dL (40-60); LDL Cholesterol,Calculated 123 mg/dL (0-99); Non-African American GFR(CKD) >90 (>60 ml/min/1.73 sqM); Potassium 4.3 mmol/L (3.5-5.1); Sodium 135 mmol/L (137-145); Triglycerides 178 mg/dL (<150)
[2020-08-31] MEDS ORDERED: ASPIRIN 325 MG TAB PO SCH (09:00)
[2020-08-31 09:01] LABS: Glucose,Whole Blood 112 mg/dL (75-99)
--- NOTE | 2020-08-31 09:59 | CONS ---
CONSULTATION CHIEF COMPLAINT: Chest pain. Cornell is a 44-year-old gentleman who is admitted to the hospital with history of diabetes, who is admitted to hospital with poorly-controlled blood sugars and chest pain. He describes his chest discomfort as precordial, mild intensity, came on at rest and radiated to his back. It was not associated with diaphoresis. There was no shortness of breath. It resolved after sublingual nitroglycerin. There is no prior history of coronary artery disease or congestive heart failure. His admission EKG shows sinus rhythm with nonspecific ST-T wave changes. He has had 3 sets of troponins that are all within normal limits. LABS: Show that the white cell count is elevated. Hemoglobin is 10.5. Potassium is 4.3, creatinine is 0.67. Given the unexplained chest pain, I advised the patient to undergo a stress echo and I will also obtain a 2D echo. I will decide on further course of action based on these findings. PAST MEDICAL HISTORY: Significant for diabetes. CURRENT MEDICATIONS: Include insulin. ALLERGIES: No known drug allergies. FAMILY HISTORY: Negative for premature coronary artery disease. SOCIAL HISTORY: Negative for current smoking, EtOH abuse, or drug abuse. REVIEW OF SYSTEMS: HEENT: Unremarkable. CARDIAC: As described above. RESPIRATORY: As described above. GI: Negative. GENITOURINARY: Negative. ALLERGY: Negative. SKIN: Negative. MUSCULOSKELETAL: Significant for arthritis. PSYCHOSOCIAL: Negative. DERMATOLOGICAL: Negative. CONSTITUTIONAL: Negative. ONCOLOGICAL: Negative. WIRE GALVANIZER: Negative. Rest of the system review is not relevant. PHYSICAL EXAMINATION: On exam, patient is comfortable at rest. Vital signs are stable. O2 saturation is 95% on room air. There is no jugular venous distention. Chest exam reveals good air entry bilaterally. Heart exam reveals first and second heart sounds. No gallop. Abdomen is soft. Exam of the extremities did not reveal any edema. Peripheral pulses are felt. ASSESSMENT: 1. Precordial chest pain. 2. Severe uncontrolled diabetes. PLAN: I am going to obtain an echo and stress echo. If these are abnormal, I will perform cardiac catheterization on him. MMODL / IJN: [id number] /
--- NOTE | 2020-08-31 10:14 | P.PN ---
Subjective Progress Note Date: 08/31/20 Pt is doing very well reporting improvement in chest pain, abdominal pain, n/v. Reports feeling very hungry. Objective - Vital Signs Vital signs: Vital Signs Temp 98.6 F 08/31/20 08:50 Pulse 88 08/31/20 08:50 Resp 16 08/31/20 08:50 BP 117/65 08/31/20 08:50 Pulse Ox 95 08/31/20 08:50 Intake & Output 08/30/20 08/31/20 08/31/20 18:59 06:59 18:59 Weight 56.699 kg 62.7 kg Other: Voiding Method Toilet # Voids 1 - Exam Gen: awake, alert HEENT: normocephalic, atraumatic, good hearing acuity, moist mucous membranes Resp: CTAB, good air exchange, no accessory muscle use, no wheezes, crackles, rhonchi CVS: good distal perfusion x 4, RRR, no murmurs, clicks, gallops GI: soft, NTTP, ND : no SPT, no CVAT, villasenor catheter is not present MSK: no pitting edema, no clubbing Neuro: non-focal, no sensory deficits, appropriate tone Psych: cooperative, euthymic mood - Labs CBC & Chem 7: 08/31/20 07:04 08/31/20 07:04 Labs: Abnormal Lab Results - Last 24 Hours (Table) 08/30/20 08/30/20 08/30/20 Range/Units 12:01 12:11 12:11 WBC 10.9 H (3.8-10.6) k/uL RBC 3.97 L (4.30-5.90) m/uL Hgb 12.3 L (13.0-17.5) gm/dL Hct 37.8 L (39.0-53.0) % Neutrophils # 8.3 H (1.3-7.7) k/uL D-Dimer (<0.60) mg/L FEU Sodium 135 L (137-145) mmol/L Chloride 109 H (98-107) mmol/L Glucose 530 H* (74-99) mg/dL POC Glucose (mg/dL) 519 H (75-99) mg/dL Hemoglobin A1c (4.0-6.0) % Calcium 7.7 L (8.4-10.2) mg/dL Alkaline Phosphatase 153 H (38-126) U/L Total Protein 4.7 L (6.3-8.2) g/dL Albumin 2.0 L (3.5-5.0) g/dL Triglycerides (<150) mg/dL Cholesterol (<200) mg/dL LDL Cholesterol, Calc (0-99) mg/dL HDL Cholesterol (40-60) mg/dL 08/30/20 08/30/20 08/30/20 Range/Units 12:11 12:11 13:44 WBC (3.8-10.6) k/uL RBC (4.30-5.90) m/uL Hgb (13.0-17.5) gm/dL Hct (39.0-53.0) % Neutrophils # (1.3-7.7) k/uL D-Dimer 0.74 H (<0.60) mg/L FEU Sodium (137-145) mmol/L Chloride (98-107) mmol/L Glucose (74-99) mg/dL POC Glucose (mg/dL) 534 H (75-99) mg/dL Hemoglobin A1c 15.6 H (4.0-6.0) % Calcium (8.4-10.2) mg/dL Alkaline Phosphatase (38-126) U/L Total Protein (6.3-8.2) g/dL Albumin (3.5-5.0) g/dL Triglycerides (<150) mg/dL Cholesterol (<200) mg/dL LDL Cholesterol, Calc (0-99) mg/dL HDL Cholesterol (40-60) mg/dL 08/30/20 08/30/20 08/31/20 Range/Units 16:31 19:51 07:04 WBC (3.8-10.6) k/uL RBC (4.30-5.90) m/uL Hgb (13.0-17.5) gm/dL Hct (39.0-53.0) % Neutrophils # (1.3-7.7) k/uL D-Dimer (<0.60) mg/L FEU Sodium 135 L (137-145) mmol/L Chloride 109 H (98-107) mmol/L Glucose (74-99) mg/dL POC Glucose (mg/dL) 323 H 169 H (75-99) mg/dL Hemoglobin A1c (4.0-6.0) % Calcium 7.1 L (8.4-10.2) mg/dL Alkaline Phosphatase (38-126) U/L Total Protein (6.3-8.2) g/dL Albumin (3.5-5.0) g/dL Triglycerides 178 H (<150) mg/dL Cholesterol 227 H (<200) mg/dL LDL Cholesterol, Calc 123 H (0-99) mg/dL HDL Cholesterol 68 H (40-60) mg/dL 08/31/20 08/31/20 Range/Units 07:04 08:57 WBC 13.8 H (3.8-10.6) k/uL RBC 3.46 L (4.30-5.90) m/uL Hgb 10.5 L (13.0-17.5) gm/dL Hct 32.4 L (39.0-53.0) % Neutrophils # (1.3-7.7) k/uL D-Dimer (<0.60) mg/L FEU Sodium (137-145) mmol/L Chloride (98-107) mmol/L Glucose (74-99) mg/dL POC Glucose (mg/dL) 112 H (75-99) mg/dL Hemoglobin A1c (4.0-6.0) % Calcium (8.4-10.2) mg/dL Alkaline Phosphatase (38-126) U/L Total Protein (6.3-8.2) g/dL Albumin (3.5-5.0) g/dL Triglycerides (<150) mg/dL Cholesterol (<200) mg/dL LDL Cholesterol, Calc (0-99) mg/dL HDL Cholesterol (40-60) mg/dL Assessment and Plan Assessment: 1. Chest pain 2. Type 1 diabetes with hyperglycemia 3. Pulmonary nodule 4. GERD with esophagitis 44-year-old homeless man with GERD and type 1 diabetes presented with hyperglycemia and chest pain without DKA in the context of medication noncompliance due to not being able to obtain his insulin. Chest pain -Suspect noncardiac -Aspirin, trend troponins -Cardiology evaluation -Echocardiogram -Telemetry -Check lipid profile - nitro Diabetes mellitus type 1 with hyperglycemia -Restart 70/30 insulin with improved patient's blood sugars significantly with 1 dose last hospitalization -Follow blood sugars -Has just met with family living educator and dietitian Possible pulmonary nodule -Recommend outpatient CT of the chest Social stressors -Homelessness: Met with professor of social work last hospital stay, patient does not have an ID card and therefore cannot be seen at a homeless [facility]. [facility] as he does not have [facility]. Patient has been instructed multiple times that he needs to obtain identification. GERD -Start IV PPI The patient is placed in observation with an anticipated less than 2 midnight stay for evaluation of chest pain. Surrogate decision-maker: Shen DVT prophylaxis: SCDs Discussed with: Patient, nursing, ED physician Anticipated discharge date: in AM Anticipated discharge place: Return to friends home A total of 45 minutes was spent on the care of this complex patient more than 50% of the time was spent in counseling and care coordination.
[2020-08-31] MEDS ORDERED: DOBUTamine DRIP for NUC MED 500 MG in DEXTROSE/WATER 1 250ML.BAG IV ONE (12:00)
[2020-08-31] MEDS ORDERED: ATROPINE SULFATE 0.1 MG/ML 10ML SYRINGE ONE (12:10)
[2020-08-31 12:36] LABS: Glucose,Whole Blood 148 mg/dL (75-99)
[2020-08-31] MEDS: INSULN ASP PRT/INSULIN ASPART 100 UNIT/ML 10 ML VIAL SQ SCH ×2 (12:37→17:17)
[2020-08-31] MEDS: PANTOPRAZOLE 40 MG/10 ML VIAL IVP SCH (12:38)
[2020-08-31] MEDS: ASPIRIN 81 MG PO SCH (12:38)
[2020-08-31 13:37] VITALS: BMI 23.0
--- NOTE | 2020-08-31 13:40 | ECHOF ---
Referral Reason:chest pain MEASUREMENTS -------- HEIGHT: 165.1 cm WEIGHT: 63.0 kg BP: RVIDd: 3.1 cm (< 3.3) IVSd: 1.3 cm (0.6 - 1.1) LVIDd: 4.5 cm (3.9 - 5.3) LVPWd: 1.1 cm (0.6 - 1.1) IVSs: 1.3 cm LVIDs: 3.5 cm LVPWs: 1.5 cm LA Diam: 4.2 cm (2.7 - 3.8) LAESV Index (A-L): 28.25 ml/m Ao Diam: 3.4 cm (2.0 - 3.7) AV Cusp: 2.0 cm (1.5 - 2.6) MV EXCURSION: 14.126 mm (> 18.000) MV EF SLOPE: 74 mm/s (70 - 150) EPSS: 1.3 cm MV E Vu: 0.50 m/s MV DecT: 176 ms MV A Vu: 0.96 m/s MV E/A Ratio: 0.52 RAP: 5.00 mmHg RVSP: 27.86 mmHg FINDINGS -------- Sinus rhythm. This was a technically good study. The left ventricular size is normal. There is mild concentric left ventricular hypertrophy. Overa ll left ventricular systolic function is normal with, an EF between 55 - 60 %. The right ventricle is normal in size. The left atrium is mildly dilated. LA is midly dilated 29-33ml/m2. The right atrial size is normal. There is mild aortic valve sclerosis. Mild mitral regurgitation is present. Mild tricuspid regurgitation present. Right ventricular systolic pressure is normal at < 35 mmHg. There is no pulmonic regurgitation present. The aortic root size is normal. There is a small, generalized pericardial effusion present. CONCLUSIONS -------- 1. The left ventricular size is normal. 2. There is mild concentric left ventricular hypertrophy. 3. The right ventricle is normal in size. 4. The left atrium is mildly dilated. 5. LA is midly dilated 29-33ml/m2. 6. The right atrial size is normal. 7. There is mild aortic valve sclerosis. 8. Mild mitral regurgitation is present. 9. Mild tricuspid regurgitation present. 10. There is no pulmonic regurgitation present. 11. The aortic root size is normal. 12. There is a small, generalized pericardial effusion present. DIGITAL MEDIA DESIGNER: Sherlyn Garcia RDCS
--- NOTE | 2020-08-31 14:04 | ECHOS ---
STRESS ECHOCARDIOGRAM INDICATIONS: Chest pain. BASELINE HEART RATE: 81 BASELINE BLOOD PRESSURE: 160/90 MAXIMUM HEART RATE: 128 MAXIMUM BLOOD PRESSURE: 181/84 85% MPHR: 150 100% MPHR: 177 MAXIMUM STAGE REACHED: 4 TOTAL EXERCISE TIME: 14:42 CLINICAL INFORMATION: Chest pain. Baseline EKG revealed normal sinus rhythm without significant ST changes. With dobutamine administration and subsequently as per protocol, atropine administration, heart rate went up to 128 beats per minute which is less than 85% of predicted maximal. The patient, therefore, did not achieve 85% of his predicted maximal heart rate with the dobutamine and atropine combination. EKG was unremarkable. He was asymptomatic. By EKG criteria, this is an inconclusive stress test because of inadequate chronotropic response. Baseline echo images revealed normal wall motion and wall thickening of all segments. At a peak heart rate of 128 beats per minute which is less than 85% of predicted maximal, he had repeat echo images performed. There is good contractility of left ventricle noted with good augmentation of the contractility involving all segments. However, the heart rate was only 128 beats per minute. Therefore, this is an inconclusive dobutamine stress echo. There is a small generalized pericardial effusion noted. FINAL IMPRESSION: 1. By EKG criteria, this is an inconclusive dobutamine stress test because of inadequate chronotropic response. 2. Inconclusive dobutamine stress echo because of inadequate chronotropic response but at a heart rate of 128 beats per minute, there was good augmentation of left ventricular contractility noted. MMODL / IJN: [id number] /
[2020-08-31 16:44] LABS: Glucose,Whole Blood 119 mg/dL (75-99)
[2020-08-31 20:52] LABS: Glucose,Whole Blood 92 mg/dL (75-99)
[2020-09-01 06:05] LABS: Glucose,Whole Blood 76 mg/dL (75-99)
[2020-09-01] MEDS: NITROGLYCERIN OINT 1 INCH/GM PACKET TOPICAL SCH (06:29)
[2020-09-01] MEDS: INSULN ASP PRT/INSULIN ASPART 100 UNIT/ML 10 ML VIAL SQ SCH ×3 (06:29→19:37)
[2020-09-01 07:45] LABS: Glucose,Whole Blood 121 mg/dL (75-99)
[2020-09-01] MEDS ORDERED: INSULN ASP PRT/INSULIN ASPART 100 UNIT/ML 10 ML VIAL SQ SCH (08:00)
[2020-09-01] MEDS: ASPIRIN 81 MG PO SCH (08:32)
[2020-09-01] MEDS: PANTOPRAZOLE 40 MG/10 ML VIAL IVP SCH (08:32)
--- NOTE | 2020-09-01 09:11 | XR ---
Right hip HISTORY: Trauma and pain 2 views of the right hip There is lucency noted consistent with an intertrochanteric nondisplaced fracture of the proximal rig ht femur. No dislocation. IMPRESSION: Proximal right femoral fracture
[2020-09-01] MEDS: HYDROmorphone 1 MG/ML 1 ML SYRINGE IVP PRN (09:34)
[2020-09-01] MEDS ORDERED: NITROGLYCERIN SL TABS 0.4 MG TAB SUBLINGUAL PRN (10:04)
[2020-09-01] MEDS ORDERED: ALPRAZolam 0.25 MG TAB PO PRN (10:04)
[2020-09-01] MEDS ORDERED: ALPRAZolam 0.5 MG TAB PO PRN (10:04)
--- NOTE | 2020-09-01 10:36 | P.PN ---
Subjective Progress Note Date: 09/01/20 CHIEF COMPLAINT: Chest pain HISTORY OF PRESENT ILLNESS: Patient examined this morning at the bedside. He denies chest pain or pressure. Denies shortness of breath. Patient underwent dobutamine chest x-ray yesterday which was inconclusive secondary to patient being unable to reach his target heart rate. Echocardiogram completed yesterday reveals ejection fraction between 55 and 60%, mild mitral regurgitation, and mild tricuspid regurgitation. Patient was walking to the bathroom this morning when he states his leg gave out on him and he fell. Patient was complaining of right hip pain after the fall. X-ray was completed revealing proximal right femoral fracture. PHYSICAL EXAM: VITAL SIGNS: Reviewed. GENERAL: Well-developed in no acute distress. NECK: Supple. No JVD or thyromegaly LUNGS: Respirations even and unlabored. Lungs essentially clear to auscultation bilaterally. HEART: Regular rate and rhythm. S1 and S2 heard. EXTREMITIES: Normal range of motion. No clubbing or cyanosis. Peripheral pulses intact. No lower extremity edema ASSESSMENT: Chest pain, troponins negative 3 Diabetes, Type I Right proximal femoral fracture, status post fall PLAN: Orthopedics has been consulted secondary to right femur fracture. Await evaluation and recommendations Patient to undergo cardiac catheterization tomorrow morning with Dr. Andujar Nurse practitioner note has been reviewed by physician. Signing provider agrees with the documented findings, assessment, and plan of care. Objective - Vital Signs Vital signs: Vital Signs Temp 99.1 F 09/01/20 08:31 Pulse 94 09/01/20 08:31 Resp 18 09/01/20 08:31 BP 113/64 09/01/20 08:31 Pulse Ox 95 09/01/20 08:31 Intake & Output 08/31/20 09/01/20 09/01/20 18:59 06:59 18:59 Intake Total 4052 420 320 Balance 4052 420 320 Weight 62.7 kg 62 kg Intake: Intake, IV Titration 1040 Amount Sodium Chloride 0.9% 1, 1040 000 ml @ 130 mls/hr IV . Q7H42M [facility] Rx#:[id number] Oral [phone] Other: Voiding Method Toilet Toilet # Voids 2 2 - Labs CBC & Chem 7: 08/31/20 07:04 08/31/20 07:04 Labs: Abnormal Lab Results - Last 24 Hours (Table) 08/31/20 08/31/20 09/01/20 Range/Units 12:34 16:42 07:38 POC Glucose (mg/dL) 148 H 119 H 121 H (75-99) mg/dL
--- NOTE | 2020-09-01 10:57 | P.PN ---
Subjective Progress Note Date: 09/01/20 Pt had a mechanical fall today resulting in femur fracture. Pt reports significant pain, improved with dilaudid. Objective - Vital Signs Vital signs: Vital Signs Temp 99.1 F 09/01/20 08:31 Pulse 94 09/01/20 08:31 Resp 18 09/01/20 08:31 BP 113/64 09/01/20 08:31 Pulse Ox 95 09/01/20 08:31 Intake & Output 08/31/20 09/01/20 09/01/20 18:59 06:59 18:59 Intake Total 4052 420 320 Balance 4052 420 320 Weight 62.7 kg 62 kg Intake: Intake, IV Titration 1040 Amount Sodium Chloride 0.9% 1, 1040 000 ml @ 130 mls/hr IV . Q7H42M [facility] Rx#:[id number] Oral [phone] Other: Voiding Method Toilet Toilet # Voids 2 2 - Exam Gen: awake, alert HEENT: normocephalic, atraumatic, good hearing acuity, moist mucous membranes Resp: CTAB, good air exchange, no accessory muscle use, no wheezes, crackles, rhonchi CVS: good distal perfusion x 4, RRR, no murmurs, clicks, gallops GI: soft, NTTP, ND : no SPT, no CVAT, villasenor catheter is not present MSK: no pitting edema, no clubbing Neuro: non-focal, no sensory deficits, appropriate tone Psych: cooperative, euthymic mood - Labs CBC & Chem 7: 08/31/20 07:04 08/31/20 07:04 Labs: Abnormal Lab Results - Last 24 Hours (Table) 08/31/20 08/31/20 09/01/20 Range/Units 12:34 16:42 07:38 POC Glucose (mg/dL) 148 H 119 H 121 H (75-99) mg/dL Assessment and Plan Assessment: 1. Chest pain 2. Type 1 diabetes with hyperglycemia 3. Pulmonary nodule 4. GERD with esophagitis 5. Right Femur Fracture 44-year-old homeless man with GERD and type 1 diabetes presented with hyperglycemia and chest pain without DKA in the context of medication noncompliance due to not being able to obtain his insulin. Chest pain -Suspect noncardiac -Aspirin, trend troponins -Cardiology evaluation -Echocardiogram -Telemetry -Check lipid profile - nitro #Femur Fracture - pain control: dilaudid 1mg q3h PRN - stool softener PRN - ortho c/s Diabetes mellitus type 1 with hyperglycemia -Restart 70/30 insulin with improved patient's blood sugars significantly with 1 dose last hospitalization -Follow blood sugars -Has just met with school vocational educator and dietitian Possible pulmonary nodule -Recommend outpatient CT of the chest Social stressors -Homelessness: Met with manager social responsibility last hospital stay, patient does not have an ID card and therefore cannot be seen at a homeless intermediate. [facility] as he does not have [facility]. Patient has been instructed multiple times that he needs to obtain identification. GERD -Start IV PPI Surrogate decision-maker: Shen DVT prophylaxis: SCDs Discussed with: Patient, nursing
[2020-09-01 11:43] LABS: Glucose,Whole Blood 105 mg/dL (75-99)
--- NOTE | 2020-09-01 12:16 | P.CNOR ---
History of Present Illness - [facility] Consult date: 09/01/20 Consult reason: fracture History of present illness: Patient is 44 yo male seen at bedside this morning in consultation for right hip fracture. He was admitted two days ago for chest pain and has continued to be ev aluated for cardiac issues. He is scheduled for cardiac cath tomorrow, 09/02/20. He was walking to the bathroom this morning when his legs gave way and he fell to his right hip. He had immediate pain and xrays obtained showing a right non displaced IT fracture. He continues to have pain. He denies numbness or calf pain. He has no other current complaints. He is homeless and insulin dependent. Review of Systems All systems: negative Constitutional: Denies chills, Denies fever Eyes: denies blurred vision, denies pain Ears, nose, mouth and throat: Denies headache, Denies sore throat Cardiovascular: Denies chest pain, Denies shortness of breath Respiratory: Denies cough Gastrointestinal: Denies abdominal pain, Denies diarrhea, Denies nausea, Denies vomiting Musculoskeletal: Denies myalgias Integumentary: Denies pruritus, Denies rash Neurological: Denies numbness, Denies weakness Psychiatric: Denies anxiety, Denies depression Endocrine: Denies fatigue, Denies weight change Past Medical History Past Medical History: Diabetes Mellitus, GERD/Reflux, Pneumonia Additional Past Medical History / Comment(s): 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 History of Any Multi-Drug Resistant Organisms: None Reported Past Surgical History: No Surgical Hx Reported Past Anesthesia/Blood Transfusion Reactions: No Reported Reaction, Motion Sickness Additional Past Anesthesia/Blood Transfusion Reaction / Comm: Pt has clausterphobia Past Psychological History: No Psychological Hx Reported Smoking Status: Former smoker Past Alcohol Use History: None Reported Past Drug Use History: Marijuana, Methamphetamine - Past Family History Father Family Medical History: No Reported History Additional Family Medical History / Comment(s): Father is healthy Mother Family Medical History: Myocardial Infarction (PR) Additional Family Medical History / Comment(s): Mother of a PR in her 60s. Medications and Allergies Home Medications Medication Instructions Recorded Confirmed Type Insuln Asp Prt/Insulin Aspart 15 unit SQ AC-SUPPER #2 vial 08/27/20 08/30/20 Rx [NovoLOG MIX 70-30 VIAL] Insuln Asp Prt/Insulin Aspart 25 unit SQ AC-BRKFST #2 vial 08/27/20 08/30/20 Rx [NovoLOG MIX 70-30 VIAL] Allergies Allergy/AdvReac Type Severity Reaction Status Date / Time No Known Allergies Allergy Verified 08/30/20 12:25 Physical Examination Inspection of right hip and leg show no deformity. No open wounds, erythema or echymoses. Hip range of motion is not tested due to fracture. Neurovascular status is grossly intact throughout right lower extremity with motor and sensation. There is no knee tenderness or effusion. There is no pain with range of motion of the knee. Calf is soft and nontender. 2+ dorsalis pedis and less than 2 second capillary refill is present. Results x-ray of the right hip shows a nondisplaced intertrochanteric femur fracture. - Labs Labs: Abnormal Lab Results - Last 24 Hours (Table) 08/31/20 08/31/20 09/01/20 Range/Units 12:34 16:42 07:38 POC Glucose (mg/dL) 148 H 119 H 121 H (75-99) mg/dL 09/01/20 Range/Units 11:42 POC Glucose (mg/dL) 105 H (75-99) mg/dL H & H 08/30/20 08/31/20 Range/Units 12:11 07:04 Hgb 12.3 L 10.5 L (13.0-17.5) gm/dL Hct 37.8 L 32.4 L (39.0-53.0) % Coagulation 08/30/20 Range/Units 12:11 INR 0.9 (<1.2) Result Diagrams: 08/31/20 07:04 08/31/20 07:04 - Diagnostic results Hip x-ray: report reviewed, image reviewed Assessment and Plan (1) Intertrochanteric fracture of femur Narrative/Plan: Plan will be to proceed with surgical intervention including gamma nail for his right intertrochanteric femur fracture. He's currently scheduled for cardiac catheterization tomorrow morning 09/02/2020. Will discuss with Dr. Do and cardiology/internal medicine when would be appropriate to proceed with surgical intervention. We'll request medical and cardiac clearance. Continue pain management, DVT prophylaxis, and bedrest. Further orders and recommendations to be forthcoming. Current Visit: Yes Status: Acute Priority: Medium Code(s): S72.143A - DISPLACED INTERTROCHANTERIC FRACTURE OF UNSP FEMUR, INIT SNOMED Code(s): 642594029 Time with Patient: Less than 30
[2020-09-01] MEDS: HYDROcodone/APAP 5-325MG 1 EACH TAB PO PRN ×3 (12:42→21:37)
[2020-09-01 14:36] LABS: Glucose,Whole Blood 137 mg/dL (75-99)
[2020-09-01] MEDS ORDERED: SODIUM CHLORIDE 0.9% 1,000 ML in EMPTY BAG 1 BAG IV ONE (15:00)
[2020-09-01 16:30] LABS: Glucose,Whole Blood 92 mg/dL (75-99)
[2020-09-01 19:57] LABS: Glucose,Whole Blood 36 mg/dL (75-99)
[2020-09-01 19:57] LABS: Glucose,Whole Blood 40 mg/dL (75-99)
[2020-09-01 20:12] LABS: Glucose,Whole Blood 41 mg/dL (75-99)
[2020-09-01] MEDS ORDERED: DEXTROSE 50% SYRINGE 50 ML IVP ONE (20:14)
[2020-09-01 20:29] LABS: Glucose,Whole Blood 244 mg/dL (75-99)
[2020-09-01 21:22] LABS: Glucose,Whole Blood 128 mg/dL (75-99)
[2020-09-02] MEDS: HYDROcodone/APAP 5-325MG 1 EACH TAB PO PRN ×2 (02:59→08:29)
[2020-09-02 04:32] LABS: Glucose,Whole Blood 107 mg/dL (75-99)
[2020-09-02 06:04] LABS: Glucose,Whole Blood 128 mg/dL (75-99)
[2020-09-02] MEDS: INSULN ASP PRT/INSULIN ASPART 100 UNIT/ML 10 ML VIAL SQ SCH ×2 (06:43→17:57)
[2020-09-02] MEDS ORDERED: ATORVASTATIN 80 MG TAB PO ONE (07:00)
[2020-09-02] MEDS ORDERED: ASPIRIN 325 MG TAB PO ONE (07:00)
[2020-09-02] MEDS: ASPIRIN 81 MG PO SCH (07:56)
[2020-09-02] MEDS: PANTOPRAZOLE 40 MG TABLET PO SCH (08:28)
[2020-09-02 08:53] LABS: Basophils # (A) 0.1 k/uL (0-0.2); Basophils % (A) 1 %; Eosinophils # (A) 0.2 k/uL (0-0.7); Eosinophils % (A) 2 %; HGB 10.5 gm/dL (13.0-17.5); Lymphocytes # (A) 1.8 k/uL (1.0-4.8); Lymphocytes % (A) 19 %; MCH 31.2 pg (25.0-35.0); MCHC 32.6 g/dL (31.0-37.0); MCV 95.6 fL (80.0-100.0); Mean Platelet Volume 6.5; Monocytes # (A) 0.7 k/uL (0-1.0); Monocytes % (A) 7 %; Neutrophils # (A) 6.6 k/uL (1.3-7.7); Neutrophils % (A) 69 %; Platelet Count 333 k/uL (150-450); RBC 3.35 m/uL (4.30-5.90); RDW 13.6 % (11.5-15.5); WBC 9.6 k/uL (3.8-10.6)
[2020-09-02 09:09] LABS: African American GFR (CKD) >90 (>60 ml/min/1.73 sqM); Anion Gap -2 mmol/L; Blood Urea Nitrogen 19 mg/dL (9-20); Calcium 7.3 mg/dL (8.4-10.2); Carbon Dioxide 26 mmol/L (22-30); Chloride 108 mmol/L (98-107); Glucose 161 mg/dL (74-99); Non-African American GFR(CKD) >90 (>60 ml/min/1.73 sqM); Potassium 4.9 mmol/L (3.5-5.1); Sodium 132 mmol/L (137-145)
--- NOTE | 2020-09-02 09:56 | PN ---
PROGRESS NOTE Cornell is a 44-year-old gentleman with history of diabetes, who is admitted to hospital with chest pain and ruled out for myocardial infarction. He underwent a dobutamine echo that was inconclusive and while in the hospital he fell and fractured his right hip. He is to undergo surgery. My initial plan was to do cardiac catheterization for a definitive diagnosis, but with a normal LV function, chest pain that has resolved and an inconclusive but negative dobutamine stress echo, I think that the better option would be for him to go to proceed with his surgery and consider cardiac catheterization once he recovers from surgery. If we do a catheterization and if we do find significant blockages, if we stent him, then he will be on antiplatelet therapy and the surgery will be delayed. The patient is in severe and significant pain. I discussed these issues with the patient. He understands and in agreement with the plan. PHYSICAL EXAMINATION: On exam, patient has a temp of 99.1, heart rate is 95, blood pressure is 120/79, O2 saturation is 95% on room air. Chest exam reveals good air entry bilaterally. Heart exam reveals first and second heart sounds. No gallop. Abdomen is soft. Exam of extremities did not reveal any edema. Peripheral pulses are felt. ASSESSMENT: 1. Chest pain with inconclusive dobutamine echo. 2. Preop cardiac evaluation prior to right hip surgery for right hip fracture. PLAN: I do not see any contraindications for surgery under anesthesia at this time. I will address the inconclusive dobutamine stress echo down the road once he recovers from his orthopedic surgery. I am going to treat him with aspirin, nitrates, beta blockers at this time. MMODL / IJN: [id number] /
[2020-09-02 10:47] LABS: Glucose,Whole Blood 171 mg/dL (75-99)
--- NOTE | 2020-09-02 11:16 | P.PN ---
Subjective Progress Note Date: 09/02/20 No new complaints today. Reports feeling very hungry, but pain is well controlled. Objective - Vital Signs Vital signs: Vital Signs Temp 99.1 F 09/02/20 08:00 Pulse 95 09/02/20 09:02 Resp 24 09/02/20 08:00 BP 121/79 09/02/20 08:00 Pulse Ox 94 L 09/02/20 08:00 Intake & Output 09/01/20 09/02/20 09/02/20 18:59 06:59 18:59 Intake Total 1550 620 Output Total 1000 650 Balance 550 -30 Weight 65 kg Intake: Oral 1550 Blood Product 620 Output: Urine 1000 650 Other: Voiding Method Toilet Urinal # Voids 1 - Exam Gen: awake, alert HEENT: normocephalic, atraumatic, good hearing acuity, moist mucous membranes Resp: CTAB, good air exchange, no accessory muscle use, no wheezes, crackles, rhonchi CVS: good distal perfusion x 4, RRR, no murmurs, clicks, gallops GI: soft, NTTP, ND : no SPT, no CVAT, villasenor catheter is not present MSK: no pitting edema, no clubbing Neuro: non-focal, no sensory deficits, appropriate tone Psych: cooperative, euthymic mood - Labs CBC & Chem 7: 09/02/20 08:22 09/02/20 08:22 Labs: Abnormal Lab Results - Last 24 Hours (Table) 09/01/20 09/01/20 09/01/20 Range/Units 11:42 14:28 19:40 RBC (4.30-5.90) m/uL Hgb (13.0-17.5) gm/dL Hct (39.0-53.0) % Sodium (137-145) mmol/L Chloride (98-107) mmol/L Glucose (74-99) mg/dL POC Glucose (mg/dL) 105 H 137 H 40 L (75-99) mg/dL Calcium (8.4-10.2) mg/dL 09/01/20 09/01/20 09/01/20 Range/Units 19:56 20:11 20:22 RBC (4.30-5.90) m/uL Hgb (13.0-17.5) gm/dL Hct (39.0-53.0) % Sodium (137-145) mmol/L Chloride (98-107) mmol/L Glucose (74-99) mg/dL POC Glucose (mg/dL) 36 L 41 L 244 H (75-99) mg/dL Calcium (8.4-10.2) mg/dL 09/01/20 09/02/20 09/02/20 Range/Units 21:21 04:30 06:03 RBC (4.30-5.90) m/uL Hgb (13.0-17.5) gm/dL Hct (39.0-53.0) % Sodium (137-145) mmol/L Chloride (98-107) mmol/L Glucose (74-99) mg/dL POC Glucose (mg/dL) 128 H 107 H 128 H (75-99) mg/dL Calcium (8.4-10.2) mg/dL 09/02/20 09/02/20 09/02/20 Range/Units 08:22 08:22 10:45 RBC 3.35 L (4.30-5.90) m/uL Hgb 10.5 L (13.0-17.5) gm/dL Hct 32.0 L (39.0-53.0) % Sodium 132 L (137-145) mmol/L Chloride 108 H (98-107) mmol/L Glucose 161 H (74-99) mg/dL POC Glucose (mg/dL) 171 H (75-99) mg/dL Calcium 7.3 L (8.4-10.2) mg/dL Assessment and Plan Assessment: 1. Chest pain 2. Type 1 diabetes with hyperglycemia 3. Pulmonary nodule 4. GERD with esophagitis 5. Right Femur Fracture 44-year-old homeless man with GERD and type 1 diabetes presented with hyperglycemia and chest pain without DKA in the context of medication noncompliance due to not being able to obtain his insulin. Chest pain -Suspect noncardiac -Aspirin, trend troponins -Cardiology evaluation -Echocardiogram -Telemetry -Check lipid profile - nitro #Femur Fracture - pain control: dilaudid 1mg q3h PRN - stool softener PRN - ortho c/s, plan for OR today Diabetes mellitus type 1 with hyperglycemia -Restart 70/30 insulin with improved patient's blood sugars significantly with 1 dose last hospitalization -Follow blood sugars -Has just met with perinatal educator and dietitian Possible pulmonary nodule -Recommend outpatient CT of the chest Social stressors -Homelessness: Met with social work job titles last hospital stay, patient does not have an ID card and therefore cannot be seen at a homeless detention. [facility] also [facility] as he does not have ID. Patient has been instructed multiple times that he needs to obtain identification. GERD -Start IV PPI Surrogate decision-maker: Shen DVT prophylaxis: SCDs Discussed with: Patient, nursing
[2020-09-02 11:32] LABS: Glucose,Whole Blood 176 mg/dL (75-99)
[2020-09-02] MEDS: METOPROLOL SUCCINATE (ER) 25 MG TAB.ER.24H PO SCH (12:21)
[2020-09-02] MEDS: HYDROmorphone 1 MG/ML 1 ML SYRINGE IVP PRN ×3 (12:22→23:18)
[2020-09-02] MEDS: DEXTROSE 5%-0.45% NACL 1,000 ML IV SCH (12:27)
[2020-09-02] MEDS ORDERED: LIDOCAINE 1% (10MG/ML) FOR IV START INTRADERMA ONE (15:19)
[2020-09-02] MEDS ORDERED: LACTATED RINGERS 1,000 ML IV ONE (15:20)
[2020-09-02 15:46] LABS: Glucose,Whole Blood 202 mg/dL (75-99)
[2020-09-02] MEDS ORDERED: ONDANSETRON 4 MG/2 ML VIAL IVP ONE (15:50)
[2020-09-02] MEDS ORDERED: INSULIN ASPART (NovoLOG) 100 UNIT/ML VIAL SQ ONE (15:50)
[2020-09-02] MEDS ORDERED: diazePAM 5 MG TAB PO PRN (16:14)
[2020-09-02] MEDS ORDERED: TEMAZEPAM 15 MG CAP PO PRN (16:14)
[2020-09-02] MEDS ORDERED: HYDROmorphone 0.5 MG/0.5 ML SYRINGE IVP PRN ×2 (16:14)
[2020-09-02] MEDS ORDERED: ONDANSETRON 4 MG/2 ML VIAL IVP PRN (16:14)
[2020-09-02] MEDS ORDERED: MAGNESIUM HYDROXIDE 2,400 MG/10 ML CUP PO PRN (16:14)
[2020-09-02] MEDS ORDERED: KETAMINE 10 MG/ML 20 ML VIAL ONE (16:43)
[2020-09-02] MEDS ORDERED: fentaNYL (PF) 50 MCG/ML 2 ML AMP ONE (16:43)
[2020-09-02] MEDS ORDERED: MIDAZOLAM 2 MG/2 ML VIAL ONE (16:43)
[2020-09-02] MEDS: LACTATED RINGERS 1,000 ML IV SCH (17:55)
[2020-09-02] MEDS: ISOSORBIDE MONONITRATE ER 30 MG TAB.ER.24H PO SCH (17:55)
--- NOTE | 2020-09-02 18:01 | XR ---
Fluoroscopy INDICATION: Pain FINDINGS: Fluoroscopy time: 1 minute 8 seconds. Images obtained: 2. IMPRESSIONS: 1. Documentation of fluoroscopy.
[2020-09-02 18:22] LABS: Glucose,Whole Blood 143 mg/dL (75-99)
[2020-09-02] MEDS: ATORVASTATIN 20 MG TAB PO SCH (19:47)
[2020-09-02] MEDS: SENNOSIDES-DOCUSATE SODIUM 1 EACH TAB PO SCH (19:47)
[2020-09-02 20:11] LABS: Glucose,Whole Blood 138 mg/dL (75-99)
[2020-09-02] MEDS: HYDROcodone/APAP 10-325MG 1 EACH TAB PO PRN (20:32)
[2020-09-03] MEDS: HYDROmorphone 1 MG/ML 1 ML SYRINGE IVP PRN ×2 (02:15→06:00)
[2020-09-03] MEDS: HYDROcodone/APAP 10-325MG 1 EACH TAB PO PRN ×3 (02:15→15:37)
[2020-09-03] MEDS: LACTATED RINGERS 1,000 ML IV SCH ×2 (05:48→06:02)
[2020-09-03 08:13] LABS: Glucose,Whole Blood 310 mg/dL (75-99)
[2020-09-03] MEDS: INSULN ASP PRT/INSULIN ASPART 100 UNIT/ML 10 ML VIAL SQ SCH ×2 (09:17→17:37)
[2020-09-03] MEDS: ISOSORBIDE MONONITRATE ER 30 MG TAB.ER.24H PO SCH (09:24)
[2020-09-03] MEDS: PANTOPRAZOLE 40 MG TABLET PO SCH (09:24)
[2020-09-03] MEDS: METOPROLOL SUCCINATE (ER) 25 MG TAB.ER.24H PO SCH (09:24)
[2020-09-03] MEDS: ASPIRIN 81 MG PO SCH (09:25)
[2020-09-03 10:30] LABS: Basophils # (A) 0.1 k/uL (0-0.2); Basophils % (A) 0 %; Eosinophils # (A) 0.1 k/uL (0-0.7); Eosinophils % (A) 0 %; HCT 33.5 % (39.0-53.0); HGB 10.4 gm/dL (13.0-17.5); Lymphocytes # (A) 1.1 k/uL (1.0-4.8); Lymphocytes % (A) 7 %; MCH 30.3 pg (25.0-35.0); MCHC 31.2 g/dL (31.0-37.0); Mean Platelet Volume 6.8; Monocytes # (A) 0.7 k/uL (0-1.0); Monocytes % (A) 4 %; Neutrophils # (A) 13.8 k/uL (1.3-7.7); Neutrophils % (A) 87 %; Platelet Count 374 k/uL (150-450); RBC 3.45 m/uL (4.30-5.90); RDW 13.8 % (11.5-15.5); WBC 15.9 k/uL (3.8-10.6)
[2020-09-03] MEDS: ENOXAPARIN 40 MG/0.4 ML SYRINGE SQ SCH (11:08)
[2020-09-03] MEDS: DEXTROSE 5%-0.45% NACL 1,000 ML IV SCH (11:09)
[2020-09-03] MEDS: MULTIVITAMINS, THERA 1 EACH TAB PO SCH (11:15)
[2020-09-03] MEDS: HYDROmorphone 0.5 MG/0.5 ML SYRINGE IVP PRN ×3 (11:18→21:01)
--- NOTE | 2020-09-03 11:21 | US ---
EXAMINATION TYPE: US venous doppler duplex UE RT DATE OF EXAM: 09/03/2020 COMPARISON: NONE CLINICAL HISTORY: r/0 DVT. Right arm redness and swelling SIDE PERFORMED: Right Right Arm: Negative for DVT IMPRESSION: Grayscale, color doppler, spectral doppler imaging performed of the deep veins of the upper extremiti es. There is normal flow, compressability and vascular waveforms.
--- NOTE | 2020-09-03 11:33 | P.PN ---
Subjective Progress Note Date: 09/03/20 Patient is doing fairly well today. He was very lethargic when I saw him. He did not have any complaints this morning. I noted that he has significant swelling in his right upper extremity. Objective - Vital Signs Vital signs: Vital Signs Temp 98.3 F 09/03/20 04:18 Pulse 105 H 09/03/20 04:18 Resp 20 09/03/20 04:18 BP 120/76 09/03/20 04:18 Pulse Ox 93 L 09/03/20 04:18 Intake & Output 09/02/20 09/03/20 09/03/20 18:59 06:59 18:59 Intake Total 900 290 Output Total 325 450 Balance 575 -160 Weight 65.6 kg Intake: IV 900 Intake, IV Titration 50 Amount ceFAZolin 2 gm In Sodium 50 Chloride 0.9% 50 ml @ 100 mls/hr IVPB Q8HR [facility] Rx# :[id number] Oral 240 Output: Urine 275 450 Estimated Blood Loss 50 - Exam General: The patient is awake and alert, in no distress Eye: there is normal conjunctiva bilaterally. Neck: The neck is supple, there is no JVD. Cardiovascular: Normal S1-S2, no S3-S4, no murmurs. Respiratory: Lungs clear to auscultation bilaterally Gastrointestinal: Abdomen is soft, nontender Musculoskeletal: There is no pedal edema. Neurological:. Speech is normal. Skin: Skin is warm and dry - Labs CBC & Chem 7: 09/03/20 10:13 09/02/20 08:22 Labs: Abnormal Lab Results - Last 24 Hours (Table) 09/02/20 09/02/20 09/02/20 Range/Units 11:32 15:30 18:20 WBC (3.8-10.6) k/uL RBC (4.30-5.90) m/uL Hgb (13.0-17.5) gm/dL Hct (39.0-53.0) % Neutrophils # (1.3-7.7) k/uL POC Glucose (mg/dL) 176 H 202 H 143 H (75-99) mg/dL 09/02/20 09/03/20 09/03/20 Range/Units 20:10 08:11 10:13 WBC 15.9 H (3.8-10.6) k/uL RBC 3.45 L (4.30-5.90) m/uL Hgb 10.4 L (13.0-17.5) gm/dL Hct 33.5 L (39.0-53.0) % Neutrophils # 13.8 H (1.3-7.7) k/uL POC Glucose (mg/dL) 138 H 310 H (75-99) mg/dL Assessment and Plan Assessment: This is a 44-year-old male with complex past medical history noted below who presented to the emergency room with chest pain. Patient was admitted to the hospital for further management of his medical problems noted below. On 08/01, patient had a fall while walking to the bathroom in his hospital room and sustained a right hip fracture. Those risks of his medical problems. 1. Chest pain: Most likely atypical in nature. Twelve-lead EKG showed no acute ischemic changes. Serial troponin negative 3 sets. Patient was seen and evaluated by cardiology. He underwent a dobutamine stress test that was inconclusive. Echocardiogram showed preserved ejection fraction and no significant valvular abnormalities. Plan for left heart catheterization in the outpatient setting in the future. Started on Imdur and metoprolol by cardiology. 2. Mechanical fall with right intertrochanteric fracture: Postoperative day #1 status post right intertrochanteric fracture nail insertion. Postoperative care and weightbearing as directed I orthopedic. Pain control. 3. Type 1 diabetes, not well controlled secondary to noncompliance. A1c 15.6 currently on insulin units twice daily. Blood glucose within acceptable range. 4. Hyperlipidemia, started on Lipitor 20 mg once a day 5. Suspected pulmonary nodule on chest x-ray. Plan for follow-up computed tomography scan of the chest as an outpatient 6. DVT prophylaxis with subcu Lovenox 7. Physical debility, PT/OT consulted Today, I reviewed his medication list and lab work results. Continue current regimen. Avoid benzodiazepine and pain medication unless necessary as patient was very lethargic this morning. Patient is homeless. Social work involved in his case. Would probably need to go to care home facility for rehab.
[2020-09-03 11:39] LABS: Glucose,Whole Blood 390 mg/dL (75-99)
--- NOTE | 2020-09-03 13:31 | P.PN ---
Subjective Progress Note Date: 09/03/20 Principal diagnosis: Right hip fracture Patient is seen at bedside this morning. He is postop day #1 from gamma nail for right IT fracture. He has pain at the surgical site as expected but denies any new complaints. He denies numbness, tingling or calf pain. Review of systems is negative for fever, chills, chest pain, shortness of breath or other Objective - Vital Signs Vital signs: Vital Signs Temp 97.6 F 09/03/20 11:22 Pulse 104 H 09/03/20 11:22 Resp 20 09/03/20 11:22 BP 123/80 09/03/20 11:22 Pulse Ox 90 L 09/03/20 11:22 Intake & Output 09/02/20 09/03/20 09/03/20 18:59 06:59 18:59 Intake Total 900 290 200 Output Total 325 450 Balance 575 -160 200 Weight 65.6 kg Intake: IV 900 Intake, IV Titration 50 Amount ceFAZolin 2 gm In Sodium 50 Chloride 0.9% 50 ml @ 100 mls/hr IVPB Q8HR [facility] Rx# :[id number] Oral 240 200 Output: Urine 275 450 Estimated Blood Loss 50 - Exam Inspection reveals a benign surgical wound. There is no active bleeding or drainage. Neurovascular status is intact throughout the lower extremity with motor and sensation fully intact. Calf is soft and nontender. 2+ dorsalis pedis pulse and less than 2 second cap refill is present. - Constitutional General appearance: Present: no acute distress - Labs CBC & Chem 7: 09/03/20 10:13 09/02/20 08:22 Labs: Abnormal Lab Results - Last 24 Hours (Table) 09/02/20 09/02/20 09/02/20 Range/Units 15:30 18:20 20:10 WBC (3.8-10.6) k/uL RBC (4.30-5.90) m/uL Hgb (13.0-17.5) gm/dL Hct (39.0-53.0) % Neutrophils # (1.3-7.7) k/uL POC Glucose (mg/dL) 202 H 143 H 138 H (75-99) mg/dL 09/03/20 09/03/20 09/03/20 Range/Units 08:11 10:13 11:27 WBC 15.9 H (3.8-10.6) k/uL RBC 3.45 L (4.30-5.90) m/uL Hgb 10.4 L (13.0-17.5) gm/dL Hct 33.5 L (39.0-53.0) % Neutrophils # 13.8 H (1.3-7.7) k/uL POC Glucose (mg/dL) 310 H 390 H (75-99) mg/dL Assessment and Plan (1) Intertrochanteric fracture of femur Narrative/Plan: He will continue with routine postop orthopedic protocol including pain management, wound care, PT, DVT prophylaxis and medical management. He may be weight bear as tolerated. He may be discharged from orthopedic standpoint when okay with IM and cardiology Current Visit: Yes Status: Acute Priority: Medium Code(s): S72.143A - DISPLACED INTERTROCHANTERIC FRACTURE OF UNSP FEMUR, INIT SNOMED Code(s): 453868950 Time with Patient: Less than 30
--- NOTE | 2020-09-03 16:35 | OP ---
OPERATIVE REPORT DATE OF PROCEDURE: 09/02/2020 SURGEON: Valentino Le MD. SERVER ENGINEER: GARCIA Aguilar. PREOPERATIVE DIAGNOSIS: Right intertrochanteric hip fracture. POSTOPERATIVE DIAGNOSIS: Right two-part intertrochanteric hip fracture. PROCEDURE: Right hip closed reduction and intramedullary hip screw fixation for a right intertrochanteric hip fracture. ANESTHESIA: Spinal with sedation. ESTIMATED BLOOD LOSS: 50 mL. TOURNIQUET: None. DRAINS: None. COMPLICATIONS: None apparent. DISPOSITION: Postanesthesia care unit. INDICATIONS: Cornell is a very pleasant 44-year-old male who fell in the hospital yesterday on 09/01/2020. He fell onto his right hip. He had immediate right hip pain. Workup including x-rays revealed a nondisplaced two-part intertrochanteric hip fracture. He is an independent ambulator. Recommendation was for closed reduction with intramedullary hip screw fixation for his hip fracture. The risks of procedure were discussed with him in detail. These risks include, but are not limited to risk of infection, nerve damage, bleeding, pain, and a small risk of deep vein thrombosis which could lead to fatal pulmonary embolism. Further risks include implant failure and failure of the fracture to heal. All of Cornell's questions with regard to the risks of procedure were answered to his satisfaction. Appropriate informed consent was obtained. DESCRIPTION OF THE PROCEDURE: The patient identified in preop holding area. Surgical sites marked by both the patient and myself. He was given 2 g of Ancef IV for prophylactic purposes. He was then transported to the operative suite. He was placed supine on the operative table. Spinal anesthetic was then administered, dosed per the anesthesia department without apparent complication. He was then placed onto the fracture table well-padded in preparation for surgery. The fluoroscopy was then brought in. The fracture remained nondisplaced. We then proceeded. His right lower extremity was then prepped and draped in the usual sterile fashion. Standard surgical pause undertaken to ensure that we were operating the correct site and that appropriate preoperative antibiotics were given. All staff in the room were in agreement and we proceeded. The tip of the greater trochanter was then identified with fluoroscopic assistance. I then made an approximate 3 cm incision extending from the tip of the greater trochanter proximally in line with the shaft of the femur. Dissection was then carried down sharply through the tensor fascia. Hemostasis was achieved with electrocautery. I then had good access to the tip of the greater trochanter. The threaded guide pin was then placed on the medial aspect of the greater trochanter and then advanced down the center of the shaft of the femur. Again this was done utilizing fluoroscopic guidance. The starting drill was then utilized to open the proximal aspect of the femur. The threaded guide pin was then removed and a ball-tipped guidewire was then placed down the shaft of the femur. Again this was done with a confirmed with fluoroscopic imaging. I then proceeded to ream the femoral canal. Start with a 9 mm reamer and incrementally increased up to a 13 mm reamer as to allow for exceptions of the intramedullary nail. I then had the pharmaceutical service representative open a Adriana 11 mm x 180 mm x 125 degree gamma nail. This was assembled on the back table. The gamma nail was then inserted over the ball- tipped guidewire and a ball-tip guidewire was removed. I then proceeded with placement of the hip screw. A second small incision was made on the lateral thigh. The threaded guide pin was then advanced into the center of the femoral head on both AP and lateral views. The tip -apex distance was appropriate. Again this was confirmed with fluoroscopic imaging. I then measured for length. The reamer was set to 90 mm. The threaded guide pin was then over reamed under fluoroscopic guidance to 90 mm. I then had the pharmaceutical service representative put 90 mm x 10 mm partially-threaded cannulated hip screw. This was then inserted over the threaded guide pin. The hip screw had an excellent purchase in the femoral head. The hip screw was then placed deep into the center of the femoral head. The tip-apex distance was appropriate. The threaded guide pin was then removed. I then proceeded to place the distal locking screw. A 5 mm x 35 mm locking screw was then placed in through the static part of the distal hole of the nail. Again this was done under fluoroscopic imaging to ensure the proper placement and length of the screw. At this point, no further work was deemed necessary. The fracture had remained nondisplaced throughout the procedure. The nail was within the center of the medullary canal. The distal locking screw was through the nail and was of appropriate length and the hip screw was placed deep in the center of the femoral head and the tip-apex distance was appropriate. At this point time no further work was deemed necessary. The jig was removed from the nail. The wounds were thoroughly irrigated with sterile saline solution with antibiotic added. The tensor fascia was closed with 0 Vicryl interrupted suture. Subcutaneous tissue closed with 2-0 Vicryl interrupted suture and the skin was closed with stainless steel mayra. Sterile compressive dressing was then applied. All sponge and needle counts were deemed correct prior to closure. The patient tolerated the procedure without apparent complication. He was transferred to recovery room in stable condition. MMODL / IJN: [id number] /
--- NOTE | 2020-09-03 16:46 | US ---
EXAMINATION TYPE: US scrotum with doppler. TECHNIQUE: Grayscale and color Doppler Duplex imaging performed of the scrotum. DATE OF EXAM: 09/03/2020 COMPARISON: NONE CLINICAL HISTORY: 44-year-old male swellings, redness, pain. Swelling to testicles Findings: EXAM MEASUREMENTS: TESTICLES: Right Testicle: 3.7 x 2.6 x 2.6 cm Left Testicle: 3.8 x 2.6 x 2.5 cm EPIDIDYMIS HEAD: Right Epididymis: 1.5 cm Left Epididymis: 1.5 cm Doppler performed to assess for testicular vascularity; good bilateral color flow and waveforms are s een. There is no evidence of testicular torsion. Presence of hydroceles: Small on the right. Presence of varicoceles: No Severe scrotal edema bilaterally IMPRESSION: 1. Severe bilateral scrotal soft tissue edema. 2. Small hydrocele on the right. 3. The underlying testicles are symmetric and intact. No evidence for testicular torsion.
[2020-09-03 17:19] LABS: Glucose,Whole Blood 142 mg/dL (75-99)
[2020-09-03] MEDS: ATORVASTATIN 20 MG TAB PO SCH (19:56)
[2020-09-03] MEDS: SENNOSIDES-DOCUSATE SODIUM 1 EACH TAB PO SCH (19:56)
[2020-09-03 19:57] LABS: Glucose,Whole Blood 104 mg/dL (75-99)
[2020-09-04] MEDS: HYDROmorphone 0.5 MG/0.5 ML SYRINGE IVP PRN ×5 (00:09→16:27)
[2020-09-04 01:56] LABS: Glucose,Whole Blood 58 mg/dL (75-99)
[2020-09-04 02:20] LABS: Glucose,Whole Blood 59 mg/dL (75-99)
[2020-09-04 02:46] LABS: Glucose,Whole Blood 80 mg/dL (75-99)
[2020-09-04 04:44] LABS: Glucose,Whole Blood 79 mg/dL (75-99)
[2020-09-04] MEDS: HYDROcodone/APAP 10-325MG 1 EACH TAB PO PRN ×2 (06:15→20:40)
[2020-09-04 07:01] LABS: Glucose,Whole Blood 75 mg/dL (75-99)
[2020-09-04] MEDS: INSULN ASP PRT/INSULIN ASPART 100 UNIT/ML 10 ML VIAL SQ SCH (08:43)
[2020-09-04 09:22] LABS: African American GFR (CKD) 120.8 (60.0-200.0); BUN/Creat Ratio 26.67 Ratio (12.00-20.00); Calcium 7.7 mg/dL (8.7-10.3); Non-African American GFR(CKD) 104.2 (60.0-200.0); Potassium 5.2 mmol/L (3.5-5.5)
[2020-09-04] MEDS: METOPROLOL SUCCINATE (ER) 25 MG TAB.ER.24H PO SCH (10:04)
[2020-09-04] MEDS: MULTIVITAMINS, THERA 1 EACH TAB PO SCH (10:05)
[2020-09-04] MEDS: ASPIRIN 81 MG PO SCH (10:05)
[2020-09-04] MEDS: ENOXAPARIN 40 MG/0.4 ML SYRINGE SQ SCH (10:05)
[2020-09-04] MEDS: ISOSORBIDE MONONITRATE ER 30 MG TAB.ER.24H PO SCH (10:05)
[2020-09-04] MEDS: PANTOPRAZOLE 40 MG TABLET PO SCH (10:05)
[2020-09-04 12:19] LABS: Glucose,Whole Blood 66 mg/dL (75-99)
[2020-09-04 12:44] LABS: Glucose,Whole Blood 109 mg/dL (75-99)
--- NOTE | 2020-09-04 15:42 | P.PN ---
Subjective Progress Note Date: 09/04/20 Principal diagnosis: Post op IT nail. Patient is seen at bedside this morning. He is postop day #2 from gamma nail for right IT fracture. He has pain at the surgical site as expected but denies any new complaints. He denies numbness, tingling or calf pain. Review of systems is negative for fever, chills, chest pain, shortness of breath or other Objective - Vital Signs Vital signs: Vital Signs Temp 98.2 F 09/04/20 12:26 Pulse 110 H 09/04/20 12:26 Resp 18 09/04/20 12:26 BP 134/83 09/04/20 12:26 Pulse Ox 91 L 09/04/20 12:26 Intake & Output 09/03/20 09/04/20 09/04/20 18:59 06:59 18:59 Intake Total 600 200 Output Total 271 650 Balance 329 -450 Intake: Intake, IV Titration 400 Amount Dextrose 5%-0.45% NaCl 1, 400 000 ml @ 50 mls/hr IV . Q20H [facility] Rx#:[id number] Oral 200 200 Output: Urine 650 Post Void Residual 271 Other: Voiding Method Urinal # Voids 2 - Exam This is a 44-year-old male in no acute distress. He is alert and oriented at this time. Exam of the right hip reveals that his dressing is clean, dry and intact. He has full foot and ankle motion without difficulty or pain. Neurovascular status to the right lower extremity is intact. - Labs CBC & Chem 7: 09/03/20 10:13 09/04/20 06:11 Labs: Abnormal Lab Results - Last 24 Hours (Table) 09/03/20 09/03/20 09/04/20 Range/Units 17:14 19:56 01:54 BUN/Creatinine Ratio (12.00-20.00) Ratio Glucose (70-110) mg/dL POC Glucose (mg/dL) 142 H 104 H 58 L (75-99) mg/dL Calcium (8.7-10.3) mg/dL 09/04/20 09/04/20 09/04/20 Range/Units 02:18 06:11 12:18 BUN/Creatinine Ratio 26.67 H (12.00-20.00) Ratio Glucose 55 L (70-110) mg/dL POC Glucose (mg/dL) 59 L 66 L (75-99) mg/dL Calcium 7.7 L (8.7-10.3) mg/dL 09/04/20 Range/Units 12:43 BUN/Creatinine Ratio (12.00-20.00) Ratio Glucose (70-110) mg/dL POC Glucose (mg/dL) 109 H (75-99) mg/dL Calcium (8.7-10.3) mg/dL Assessment and Plan (1) Intertrochanteric fracture of femur Current Visit: Yes Status: Acute Priority: Medium Code(s): S72.143A - DISPLACED INTERTROCHANTERIC FRACTURE OF UNSP FEMUR, INIT SNOMED Code(s): 881508934 Plan: The clinical findings are discussed with the patient. His dressing may be changed today. He may be discharged from an orthopedic standpoint. Follow-up in 10-14 days.
--- NOTE | 2020-09-04 17:13 | P.PN ---
Subjective Patient is doing fairly well today. No acute events overnight. Objective - Vital Signs Vital signs: Vital Signs Temp 98.2 F 09/04/20 12:26 Pulse 110 H 09/04/20 12:26 Resp 18 09/04/20 12:26 BP 134/83 09/04/20 12:26 Pulse Ox 91 L 09/04/20 12:26 Intake & Output 09/03/20 09/04/20 09/04/20 18:59 06:59 18:59 Intake Total 853 134 8939 Output Total 271 650 350 Balance 329 -450 730 Intake: Intake, IV Titration 400 Amount Dextrose 5%-0.45% NaCl 1, 400 000 ml @ 50 mls/hr IV . Q20H [facility] Rx#:[id number] Oral 506 720 2967 Output: Urine 650 350 Post Void Residual 271 Other: Voiding Method Urinal # Voids 2 4 - Exam General: The patient is awake and alert, in no distress Eye: there is normal conjunctiva bilaterally. Neck: The neck is supple, there is no JVD. Cardiovascular: Normal S1-S2, no S3-S4, no murmurs. Respiratory: Lungs clear to auscultation bilaterally Gastrointestinal: Abdomen is soft, nontender Musculoskeletal: There is no pedal edema. Neurological:. Speech is normal. Skin: Skin is warm and dry - Labs CBC & Chem 7: 09/03/20 10:13 09/04/20 06:11 Labs: Abnormal Lab Results - Last 24 Hours (Table) 09/03/20 09/03/20 09/04/20 Range/Units 17:14 19:56 01:54 BUN/Creatinine Ratio (12.00-20.00) Ratio Glucose (70-110) mg/dL POC Glucose (mg/dL) 142 H 104 H 58 L (75-99) mg/dL Calcium (8.7-10.3) mg/dL 09/04/20 09/04/20 09/04/20 Range/Units 02:18 06:11 12:18 BUN/Creatinine Ratio 26.67 H (12.00-20.00) Ratio Glucose 55 L (70-110) mg/dL POC Glucose (mg/dL) 59 L 66 L (75-99) mg/dL Calcium 7.7 L (8.7-10.3) mg/dL 09/04/20 Range/Units 12:43 BUN/Creatinine Ratio (12.00-20.00) Ratio Glucose (70-110) mg/dL POC Glucose (mg/dL) 109 H (75-99) mg/dL Calcium (8.7-10.3) mg/dL Assessment and Plan Assessment: This is a 44-year-old male with complex past medical history noted below who presented to the emergency room with chest pain. Patient was admitted to the hospital for further management of his medical problems noted below. On 08/01, patient had a fall while walking to the bathroom in his hospital room and sustained a right hip fracture. Below is a list of his medical problems during this admission. 1. Chest pain: Most likely atypical in nature. Twelve-lead EKG showed no acute ischemic changes. Serial troponin negative 3 sets. Patient was seen and evaluated by cardiology. He underwent a dobutamine stress test that was inconclusive. Echocardiogram showed preserved ejection fraction and no significant valvular abnormalities. Plan for left heart catheterization in the outpatient setting in the future. Started on Imdur and metoprolol by cardiology. 2. Mechanical fall with right intertrochanteric fracture: Postoperative day #2 status post right intertrochanteric fracture nail insertion. Postoperative care and weightbearing as directed I orthopedic. Pain control. 3. Type 1 diabetes, not well controlled secondary to noncompliance. A1c 15.6 currently on insulin 70/30 20 units in the morning and 10 units at bedtime. Blood glucose within acceptable range. 4. Hyperlipidemia, started on Lipitor 20 mg once a day 5. Suspected pulmonary nodule on chest x-ray. Plan for follow-up computed tomography scan of the chest as an outpatient 6. DVT prophylaxis with subcu Lovenox 7. Physical debility, PT/OT consulted. Patient does not have insurance and is unable to go to [facility] for rehab Today, I reviewed his medication list and lab work results. Continue current regimen. Patient is homeless. Social work involved in his case. Unable to go to [facility] due to lack of insurance. Arrangements are being made for him to go stay with his friends Discharge planning for tomorrow
[2020-09-04 17:20] LABS: Glucose,Whole Blood 268 mg/dL (75-99)
[2020-09-04] MEDS ORDERED: INSULN ASP PRT/INSULIN ASPART 100 UNIT/ML 10 ML VIAL SQ SCH (17:30)
[2020-09-04 19:39] LABS: Glucose,Whole Blood 93 mg/dL (75-99)
[2020-09-04] MEDS: SENNOSIDES-DOCUSATE SODIUM 1 EACH TAB PO SCH (20:37)
[2020-09-04] MEDS: ATORVASTATIN 20 MG TAB PO SCH (20:37)
[2020-09-05] MEDS: ACETAMINOPHEN TAB 325 MG TAB PO PRN ×2 (00:02→08:09)
[2020-09-05 02:37] LABS: Glucose,Whole Blood 80 mg/dL (75-99)
[2020-09-05] MEDS: HYDROcodone/APAP 10-325MG 1 EACH TAB PO PRN ×2 (03:19→10:50)
[2020-09-05 04:10] LABS: Glucose,Whole Blood 89 mg/dL (75-99)
[2020-09-05 04:36] LABS: Basophils # (A) 0.1 k/uL (0-0.2); Basophils % (A) 1 %; Eosinophils # (A) 0.1 k/uL (0-0.7); Eosinophils % (A) 2 %; HGB 9.2 gm/dL (13.0-17.5); Lymphocytes # (A) 0.7 k/uL (1.0-4.8); Lymphocytes % (A) 10 %; MCH 31.2 pg (25.0-35.0); MCHC 32.8 g/dL (31.0-37.0); MCV 95.2 fL (80.0-100.0); Mean Platelet Volume 6.9; Monocytes # (A) 0.9 k/uL (0-1.0); Monocytes % (A) 12 %; Neutrophils # (A) 4.9 k/uL (1.3-7.7); Neutrophils % (A) 71 %; Platelet Count 402 k/uL (150-450); RBC 2.94 m/uL (4.30-5.90); RDW 13.8 % (11.5-15.5); WBC 6.9 k/uL (3.8-10.6)
[2020-09-05 05:08] VITALS: RESP 17
[2020-09-05 07:14] LABS: Glucose,Whole Blood 120 mg/dL (75-99)
[2020-09-05] MEDS: ISOSORBIDE MONONITRATE ER 30 MG TAB.ER.24H PO SCH (08:08)
[2020-09-05] MEDS: ENOXAPARIN 40 MG/0.4 ML SYRINGE SQ SCH (08:08)
[2020-09-05] MEDS: METOPROLOL SUCCINATE (ER) 25 MG TAB.ER.24H PO SCH (08:08)
[2020-09-05] MEDS: ASPIRIN 81 MG PO SCH (08:08)
[2020-09-05] MEDS: INSULN ASP PRT/INSULIN ASPART 100 UNIT/ML 10 ML VIAL SQ SCH (08:08)
[2020-09-05] MEDS: PANTOPRAZOLE 40 MG TABLET PO SCH (08:09)
[2020-09-05 09:41] LABS: African American GFR (CKD) 126.8 (60.0-200.0); Anion Gap 6.6 mmol/L (4.00-12.00); BUN/Creat Ratio 28.75 Ratio (12.00-20.00); Calcium 7.6 mg/dL (8.7-10.3); Carbon Dioxide 28.4 mmol/L (21.6-31.8); Non-African American GFR(CKD) 109.4 (60.0-200.0); Potassium 4.7 mmol/L (3.5-5.5)
--- NOTE | 2020-09-05 10:30 | P.DS ---
Providers Date of admission: 09/01/20 11:41 Expected date of discharge: 09/05/20 Attending physician: Nasrin Celaya MD Consults: 08/30/20 13:42 Consult Physician Urgent Consulting Provider: Cardiology Niya Consult Reason/Comments: Chest pain Do you want consulting provider notified?: Yes 09/01/20 09:48 Consult Physician Urgent Consulting Provider: Valentino Do Reason/Comments: right femur fracture s/p fall Do you want consulting provider notified?: Yes Primary care physician: Stated None Hospital Course: This is a 44-year-old male with complex past medical history noted below who presented to the emergency room with chest pain. Patient was admitted to the hospital for further management of his medical problems noted below. On 08/01, patient had a fall while walking to the bathroom in his hospital room and sustained a right hip fracture. Below is a list of his medical problems during this admission. 1. Chest pain: Most likely atypical in nature. Twelve-lead EKG showed no acute ischemic changes. Serial troponin negative 3 sets. Patient was seen and evaluated by cardiology. He underwent a dobutamine stress test that was inconclusive. Echocardiogram showed preserved ejection fraction and no significant valvular abnormalities. Plan for left heart catheterization in the outpatient setting in the future. Started on Imdur and metoprolol by cardiology. 2. Mechanical fall with right intertrochanteric fracture: status post right intertrochanteric fracture nail insertion. Postoperative care and weightbearing as directed I orthopedic. Pain control. DVT prophylaxis with aspirin twice daily 3. Type 1 diabetes, not well controlled secondary to noncompliance. A1c 15.6 currently on insulin 70/30 20 units in the morning and 10 units at bedtime. Blood glucose within acceptable range. 4. Hyperlipidemia, started on Lipitor 20 mg once a day 5. Suspected pulmonary nodule on chest x-ray. Plan for follow-up computed michelle graphy scan of the chest as an outpatient 6. Physical debility, PT/OT consulted. Patient does not have insurance and is unable to go to [facility] for rehab. He will be discharged to his friend's house with home care. Patient is homeless. Patient will be discharged in a stable condition. For further details about this hospitalization please refer to the electronic chart. Time spent on discharge > 30 minutes including counseling and coordination of care Plan - Discharge Summary Discharge Rx Participant: Yes New Discharge Prescriptions: New Aspirin [Adult Low Dose Aspirin EC] 81 mg PO BID #1 tablet. HYDROcodone/APAP 7.5-325MG [[place] 7.5-325] 1 - 2 tab PO Q6HR PRN #32 tab PRN Reason: Pain Sennosides-Docusate Sodium [Senokot-S] 1 tab PO BID #60 tablet Isosorbide Mononitrate ER [Imdur] 30 mg PO DAILY #30 tab.er.24h Atorvastatin [Lipitor] 20 mg PO HS #30 tab Nitroglycerin Sl Tabs [Nitrostat] 0.4 mg SUBLINGUAL Q5M PRN #5 tab PRN Reason: Chest Pain Insuln Asp Prt/Insulin Aspart [NovoLOG MIX 70-30 VIAL] 10 unit SQ AC-SUPPER vial Insuln Asp Prt/Insulin Aspart [NovoLOG MIX 70-30 VIAL] 20 unit SQ AC-BRKFST vial Metoprolol Succinate (ER) [Toprol XL] 25 mg PO DAILY #30 tab.er.24h Discontinued Insuln Asp Prt/Insulin Aspart [NovoLOG MIX 70-30 VIAL] 15 unit SQ AC-SUPPER #2 vial Insuln Asp Prt/Insulin Aspart [NovoLOG MIX 70-30 VIAL] 25 unit SQ AC-BRKFST #2 vial Discharge Medication List Aspirin [Adult Low Dose Aspirin EC] 81 mg PO BID #1 tablet. 09/04/20 [Rx] HYDROcodone/APAP 7.5-325MG [[place] 7.5-325] 1 - 2 tab PO Q6HR PRN #32 tab 09/04/20 [Rx] Sennosides-Docusate Sodium [Senokot-S] 1 tab PO BID #60 tablet 09/04/20 [Rx] Atorvastatin [Lipitor] 20 mg PO HS #30 tab 09/05/20 [Rx] Insuln Asp Prt/Insulin Aspart [NovoLOG MIX 70-30 VIAL] 10 unit SQ AC-SUPPER vial 09/05/20 [Rx] Insuln Asp Prt/Insulin Aspart [NovoLOG MIX 70-30 VIAL] 20 unit SQ AC-BRKFST vial 09/05/20 [Rx] Isosorbide Mononitrate ER [Imdur] 30 mg PO DAILY #30 tab.er.24h 09/05/20 [Rx] Metoprolol Succinate (ER) [Toprol XL] 25 mg PO DAILY #30 tab.er.24h 09/05/20 [Rx] Nitroglycerin Sl Tabs [Nitrostat] 0.4 mg SUBLINGUAL Q5M PRN #5 tab 09/05/20 [Rx] Follow up Appointment(s)/Referral(s): Rory Andujar MD [STAFF PHYSICIAN] - 2 Weeks Valentino Do MD [STAFF PHYSICIAN] - 10 Days Alfonzo Heller [STAFF PHYSICIAN] - 1 Week Activity/Diet/Wound Care/Special Instructions: Keep wound clean and dry Take meds as directed Follow-up with Dr. Do in office Weight bear as tolerated May shower in 3 days if no bleeding Remove mayra at Post op day 12 Discharge Disposition: HOME WITH HOME HEALTH SERVICES
--- NOTE | 2020-09-05 10:57 | P.PN ---
Subjective Progress Note Date: 09/05/20 This is a 44-year-old male who is status post gamma nail for right IT fracture. This is postoperative day #3 and patient is seen and evaluated at bedside today. Patient does admit to some pain in the right hip today. Patient states that he has had difficulty ambulating, but has been working with physical therapy. Patient denies any new complaints today. Objective - Vital Signs Vital signs: Vital Signs Temp 100.9 F H 09/05/20 05:00 Pulse 101 H 09/05/20 05:00 Resp 17 09/05/20 05:00 BP 132/80 09/04/20 21:00 Pulse Ox 93 L 09/05/20 05:00 Intake & Output 09/04/20 09/05/20 09/05/20 18:59 06:59 18:59 Intake Total 2040 Output Total 1050 Balance 990 Intake: Oral 2040 Output: Urine 1050 Other: Voiding Method Urinal Urinal Urinal # Voids 4 2 - Exam Vital signs are stable. Patient is in no acute distress and is alert and oriented 3. Calf is soft and nontender to palpation. Dressing is clean, dry, and intact. Patient has full foot and ankle motion without pain or difficulty. Neurovascular status and circulatory status are intact. - Labs CBC & Chem 7: 09/05/20 03:45 09/05/20 03:45 Labs: Abnormal Lab Results - Last 24 Hours (Table) 09/04/20 09/04/20 09/04/20 Range/Units 12:18 12:43 17:17 RBC (4.30-5.90) m/uL Hgb (13.0-17.5) gm/dL Hct (39.0-53.0) % Lymphocytes # (1.0-4.8) k/uL BUN/Creatinine Ratio (12.00-20.00) Ratio POC Glucose (mg/dL) 66 L 109 H 268 H (75-99) mg/dL Calcium (8.7-10.3) mg/dL 09/05/20 09/05/20 09/05/20 Range/Units 03:45 03:45 07:13 RBC 2.94 L (4.30-5.90) m/uL Hgb 9.2 L (13.0-17.5) gm/dL Hct 28.0 L (39.0-53.0) % Lymphocytes # 0.7 L (1.0-4.8) k/uL BUN/Creatinine Ratio 28.75 H (12.00-20.00) Ratio POC Glucose (mg/dL) 120 H (75-99) mg/dL Calcium 7.6 L (8.7-10.3) mg/dL Assessment and Plan Assessment: Status post ORIF of the right hip. (1) Intertrochanteric fracture of femur Current Visit: Yes Status: Acute Priority: Medium Code(s): S72.143A - DISPLACED INTERTROCHANTERIC FRACTURE OF UNSP FEMUR, INIT SNOMED Code(s): 492884790 Plan: Continue routine postop care and pain control. Continue anticoagulation with aspirin. Weightbearing as tolerated with a walker. Leave dressing in place for 10 days. Appreciate input from medicine. Anticipate discharge home today.
[2020-09-05 11:18] LABS: Glucose,Whole Blood 68 mg/dL (75-99)
[2020-09-05 11:37] LABS: Glucose,Whole Blood 76 mg/dL (75-99)
[2020-09-05 11:47] VITALS: BP 125/70; PULSE 103; TEMP 99.6
[2020-09-05] MEDS: MULTIVITAMINS, THERA 1 EACH TAB PO SCH (11:51)
== END 2020-09-05 15:35 | disposition home health service (06) | DRG 482 ==
LOC: EC 11:48 → INTOOBSV 13:42 → 3SCARD 13:42 → OBSVTOIN 09-01 11:41 → 5NMEDONC 09-03 06:50 → 6NMEDSUR 09-03 08:01
PROVIDERS: ADMIT Internal Medicine; ATTEND Internal Medicine
PROC: 0QH636Z Insertion of Intramedullary Internal Fixation Device into Right Upper Femur, Percutaneous Approach (ICD-10-PCS; principal; 2020-09-02 09:00)
DX: S72.144A Nondisplaced intertrochanteric fracture of right femur, initial encounter for closed fracture (principal); E10.40 Type 1 diabetes mellitus with diabetic neuropathy, unspecified; E10.65 Type 1 diabetes mellitus with hyperglycemia; Z79.4 Long term (current) use of insulin; R07.89 Other chest pain; E78.5 Hyperlipidemia, unspecified; R91.1 Solitary pulmonary nodule; M54.5 Low back pain; T38.3X6A Underdosing of insulin and oral hypoglycemic [antidiabetic] drugs, initial encounter; Z91.120 Patient's intentional underdosing of medication regimen due to financial hardship; K21.00 Gastro-esophageal reflux disease with esophagitis, without bleeding; R19.7 Diarrhea, unspecified; Z59.0 Homelessness; Z87.891 Personal history of nicotine dependence; Z87.01 Personal history of pneumonia (recurrent); W18.30XA Fall on same level, unspecified, initial encounter; Y92.230 Patient room in hospital as the place of occurrence of the external cause; Y93.01 Activity, walking, marching and hiking; Z82.49 Family history of ischemic heart disease and other diseases of the circulatory system
CPT/HCPCS: 36415; 71046; 73502; 76870; 80048; 80053; 80061; 82009; 83036; 83735; 84484; 85025; 85027; 85379; 85610; 85730; 93005; 93306; 93351; 93975; 96361; 96374; 99285

== ENCOUNTER 2020-11-17 00:09 | Inpatient (IN) | payer OTHER ==
[2020-11-17] MEDS ORDERED: ONDANSETRON 4 MG/2 ML VIAL IVP STA (00:47)
[2020-11-17] MEDS ORDERED: HYDROmorphone 1 MG/ML 1 ML SYRINGE IVP STA (00:47)
[2020-11-17] MEDS ORDERED: SODIUM CHLORIDE 0.9% 1,000 ML IV ONE ×2 (00:47→01:29)
[2020-11-17 01:05] LABS: Basophils # (A) 0.1 k/uL (0-0.2); Basophils % (A) 1 %; Eosinophils # (A) 0.6 k/uL (0-0.7); Eosinophils % (A) 8 %; HCT 41.9 % (39.0-53.0); HGB 13.3 gm/dL (13.0-17.5); Hypochromasia Slight; Lymphocytes # (A) 1.6 k/uL (1.0-4.8); Lymphocytes % (A) 22 %; MCH 28.4 pg (25.0-35.0); MCHC 31.7 g/dL (31.0-37.0); MCV 89.7 fL (80.0-100.0); Mean Platelet Volume 6.8; Monocytes # (A) 0.4 k/uL (0-1.0); Monocytes % (A) 6 %; Neutrophils # (A) 4.4 k/uL (1.3-7.7); Neutrophils % (A) 61 %; Platelet Count 317 k/uL (150-450); RBC 4.68 m/uL (4.30-5.90); RDW 13.9 % (11.5-15.5); WBC 7.2 k/uL (3.8-10.6)
[2020-11-17 01:12] LABS: Albumin 2.5 g/dL (3.5-5.0); Calcium 8.4 mg/dL (8.4-10.2); Potassium 3.9 mmol/L (3.5-5.1); Total Bilirubin 0.3 mg/dL (0.2-1.3); Total Protein 5.8 g/dL (6.3-8.2)
[2020-11-17 01:43] LABS: Appearance,Urine Clear (Clear); Bilirubin,Urine Negative (Negative); Blood,Urine Moderate (Negative); Color,Urine Light Yellow; Glucose,Urine (UA) 4+ (Negative); Hyaline Casts,Urine 1 /lpf (0-2); Ketones,Urine Negative (Negative); Leukocyte Esterase,Urine Negative (Negative); Mucus,Urine Rare /hpf; Nitrite,Urine Negative (Negative); PH, Urine 6.5 (5.0-8.0); Protein,Urine 3+ (Negative); RBC,Urine 13 /hpf (0-5); Specific Gravity,Urine 1.031 (1.001-1.035); Urobilinogen,Urine <2.0 mg/dL (<2.0); WBC,Urine 4 /hpf (0-5)
[2020-11-17] MEDS ORDERED: INSULIN REGULAR 100 UNIT/ML VIAL IV STA ×2 (01:49→03:23)
[2020-11-17] MEDS ORDERED: INSULIN ASPART (NovoLOG) 100 UNIT/ML VIAL SQ STA (01:49)
--- NOTE | 2020-11-17 01:58 | ED ---
General Adult HPI - General Chief complaint: Extremity Injury, Lower Stated complaint: Post-op Hip & Leg Pain Time Seen by Provider: 11/17/20 00:30 Source: patient, family Mode of arrival: wheelchair Limitations: no limitations - History of Present Illness Initial comments: 44-year-old male patient presents to the emergency department today reporting generalized body pain. Patient states pain is worse over his legs. States he did have a femur fracture in August with subsequent surgery and placement in rehab. States he was discharged from rehab 2 days ago. States that he has been taking his [place] 7.5 as directed but is not helping. Patient states that he has had this pain in the past. He denies any nausea or vomiting. Denies headache, blurred vision, double vision. Denies numbness or tingling to his extremities. Denies any abdominal pain or back pain. Patient most of his pain is in his extremities. Patient denies any recent rash, cough, shortness of breath, chest pain, diarrhea, constipation, back pain, dizziness, weakness, hematuria, dysuria, urinary urgency, urinary frequency, or any other complaints. - Related Data Previous Rx's Medication Instructions Recorded Aspirin [Adult Low Dose Aspirin EC] 81 mg PO BID 30 Days #60 tablet. 09/05/20 Atorvastatin [Lipitor] 20 mg PO HS #30 tab 09/05/20 HYDROcodone/APAP 7.5-325MG [[place] 1 - 2 tab PO Q6H PRN #32 tab 09/05/20 7.5-325] Insuln Asp Prt/Insulin Aspart 10 unit SQ AC-SUPPER vial 09/05/20 [NovoLOG MIX 70-30 VIAL] Insuln Asp Prt/Insulin Aspart 20 unit SQ AC-BRKFST vial 09/05/20 [NovoLOG MIX 70-30 VIAL] Isosorbide Mononitrate ER [Imdur] 30 mg PO DAILY #30 tab.er.24h 09/05/20 Metoprolol Succinate (ER) [Toprol 25 mg PO DAILY #30 tab.er.24h 09/05/20 XL] Nitroglycerin Sl Tabs [Nitrostat] 0.4 mg SUBLINGUAL Q5M PRN #5 tab 09/05/20 Sennosides [Senokot] 2 tab PO DAILY PRN #60 tablet 09/05/20 Allergies Allergy/AdvReac Type Severity Reaction Status Date / Time No Known Allergies Allergy Verified 11/17/20 00:23 Review of Systems ROS Statement: Those systems with pertinent positive or pertinent negative responses have been documented in the HPI. ROS Other: All systems not noted in ROS Statement are negative. 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 History of Any Multi-Drug Resistant Organisms: None Reported Past Surgical History: Orthopedic Surgery Past Anesthesia/Blood Transfusion Reactions: No Reported Reaction, Motion Sickness Additional Past Anesthesia/Blood Transfusion Reaction / Comment(s): Pt has clausterphobia Past Psychological History: No Psychological Hx Reported Smoking Status: Former smoker Past Alcohol Use History: None Reported Past Drug Use History: Marijuana, Methamphetamine - Past Family History Father Family Medical History: No Reported History Additional Family Medical History / Comment(s): Father is healthy Mother Family Medical History: Myocardial Infarction (CT) Additional Family Medical History / Comment(s): Mother of a CT in her 60s. General Exam Limitations: no limitations General appearance: alert, in no apparent distress, other (This is a well- developed, well-nourished adult male patient in no acute distress. Vital signs upon presentation are temperature 97.8F, pulse 95, respirations 24, blood pressure 160/90, pulse ox 98% on room air.) Eye exam: Present: normal appearance, PERRL, EOMI. Absent: scleral icterus, conjunctival injection, periorbital swelling ENT exam: Present: normal exam, normal oropharynx, mucous membranes moist Respiratory exam: Present: normal lung sounds bilaterally. Absent: respiratory distress, wheezes, rales, rhonchi, stridor Cardiovascular Exam: Present: regular rate, normal rhythm, normal heart sounds. Absent: systolic murmur, diastolic murmur, rubs, gallop, clicks GI/Abdominal exam: Present: soft, normal bowel sounds. Absent: distended, tenderness, guarding, rebound, rigid Extremities exam: Present: normal inspection, full ROM, normal capillary refill, other (Well-healed incision noted to the right lateral hip. No erythema, no swelling. Skin to the lower extremities is pink, warm, dry. Cap refills less than 3 seconds. Pedal and posttibial pulses intact.). Absent: tenderness, pedal edema, joint swelling, calf tenderness Neurological exam: Present: alert, oriented X3, CN II-XII intact Psychiatric exam: Present: normal affect, normal mood Skin exam: Present: warm, dry, intact, normal color. Absent: rash Course Vital Signs 11/17/20 11/17/20 11/17/20 00:18 00:53 02:01 Temperature 97.8 F Pulse Rate 95 90 Respiratory 24 18 Rate Blood Pressure 160/90 147/90 O2 Sat by Pulse 98 96 Oximetry Medical Decision Making - Medical Decision Making 44-year-old male patient presents to the emergency department today for evaluation of generalized body aches and leg pain. Physical examination was relatively unremarkable. Neurovascular status is intact to the lower extremities. Labs were obtained and did reveal elevated blood sugar over 600. Gap is 1. Acetone is negative. He was given IV fluids and insulin. Blood sugars did improve. He will be discharged to follow-up with his primary care physician for recheck in 1-2 days. He is urged to discuss pain management referral with them. Return parameters were discussed in detail. He verbalizes understanding and agrees with this plan. - Lab Data Result diagrams: 11/17/20 00:51 11/17/20 00:51 Lab Results 11/17/20 11/17/20 11/17/20 Range/Units 00:51 00:51 00:51 WBC 7.2 (3.8-10.6) k/uL RBC 4.68 (4.30-5.90) m/uL Hgb 13.3 (13.0-17.5) gm/dL Hct 41.9 (39.0-53.0) % MCV 89.7 (80.0-100.0) fL MCH 28.4 (25.0-35.0) pg MCHC 31.7 (31.0-37.0) g/dL RDW 13.9 (11.5-15.5) % Plt Count 317 (150-450) k/uL MPV 6.8 Neutrophils % 61 % Lymphocytes % 22 % Monocytes % 6 % Eosinophils % 8 % Basophils % 1 % Neutrophils # 4.4 (1.3-7.7) k/uL Lymphocytes # 1.6 (1.0-4.8) k/uL Monocytes # 0.4 (0-1.0) k/uL Eosinophils # 0.6 (0-0.7) k/uL Basophils # 0.1 (0-0.2) k/uL Hypochromasia Slight Sodium 136 L (137-145) mmol/L Potassium 3.9 (3.5-5.1) mmol/L Chloride 109 H (98-107) mmol/L Carbon Dioxide 26 (22-30) mmol/L Anion Gap 1 mmol/L BUN 23 H (9-20) mg/dL Creatinine 1.22 (0.66-1.25) mg/dL Est GFR (CKD-EPI)AfAm 84 (>60 ml/min/1.73 sqM) Est GFR (CKD-EPI)NonAf 73 (>60 ml/min/1.73 sqM) Glucose 624 H* (74-99) mg/dL POC Glucose (mg/dL) (75-99) mg/dL POC Glu Heat Treater Apprentice ID Plasma Lactic Acid Jason 0.8 (0.7-2.0) mmol/L Calcium 8.4 (8.4-10.2) mg/dL Total Bilirubin 0.3 (0.2-1.3) mg/dL AST 22 (17-59) U/L ALT 46 (4-49) U/L Alkaline Phosphatase 158 H (38-126) U/L Creatine Kinase 614 H (55-170) U/L Total Protein 5.8 L (6.3-8.2) g/dL Albumin 2.5 L (3.5-5.0) g/dL Urine Color Urine Appearance (Clear) Urine pH (5.0-8.0) Ur Specific [place] (1.001-1.035) Urine Protein (Negative) Urine Glucose (UA) (Negative) Urine Ketones (Negative) Urine Blood (Negative) Urine Nitrite (Negative) Urine Bilirubin (Negative) Urine Urobilinogen (<2.0) mg/dL Ur Leukocyte Esterase (Negative) Urine RBC (0-5) /hpf Urine WBC (0-5) /hpf Hyaline Casts (0-2) /lpf Urine Mucus (None) /hpf Acetone, Qual (Negative) 11/17/20 11/17/20 11/17/20 Range/Units 01:30 01:30 02:20 WBC (3.8-10.6) k/uL RBC (4.30-5.90) m/uL Hgb (13.0-17.5) gm/dL Hct (39.0-53.0) % MCV (80.0-100.0) fL MCH (25.0-35.0) pg MCHC (31.0-37.0) g/dL RDW (11.5-15.5) % Plt Count (150-450) k/uL MPV Neutrophils % % Lymphocytes % % Monocytes % % Eosinophils % % Basophils % % Neutrophils # (1.3-7.7) k/uL Lymphocytes # (1.0-4.8) k/uL Monocytes # (0-1.0) k/uL Eosinophils # (0-0.7) k/uL Basophils # (0-0.2) k/uL Hypochromasia Sodium (137-145) mmol/L Potassium (3.5-5.1) mmol/L Chloride (98-107) mmol/L Carbon Dioxide (22-30) mmol/L Anion Gap mmol/L BUN (9-20) mg/dL Creatinine (0.66-1.25) mg/dL Est GFR (CKD-EPI)AfAm (>60 ml/min/1.73 sqM) Est GFR (CKD-EPI)NonAf (>60 ml/min/1.73 sqM) Glucose (74-99) mg/dL POC Glucose (mg/dL) 514 H (75-99) mg/dL POC Glu Heat Treater Apprentice ID Driss Lopez Plasma Lactic Acid Jason (0.7-2.0) mmol/L Calcium (8.4-10.2) mg/dL Total Bilirubin (0.2-1.3) mg/dL AST (17-59) U/L ALT (4-49) U/L Alkaline Phosphatase (38-126) U/L Creatine Kinase (55-170) U/L Total Protein (6.3-8.2) g/dL Albumin (3.5-5.0) g/dL Urine Color Light Yellow Urine Appearance Clear (Clear) Urine pH 6.5 (5.0-8.0) Ur Specific [place] 1.031 (1.001-1.035) Urine Protein 3+ H (Negative) Urine Glucose (UA) 4+ H (Negative) Urine Ketones Negative (Negative) Urine Blood Moderate H (Negative) Urine Nitrite Negative (Negative) Urine Bilirubin Negative (Negative) Urine Urobilinogen <2.0 (<2.0) mg/dL Ur Leukocyte Esterase Negative (Negative) Urine RBC 13 H (0-5) /hpf Urine WBC 4 (0-5) /hpf Hyaline Casts 1 (0-2) /lpf Urine Mucus Rare H (None) /hpf Acetone, Qual Negative (Negative) 11/17/20 Range/Units 03:04 WBC (3.8-10.6) k/uL RBC (4.30-5.90) m/uL Hgb (13.0-17.5) gm/dL Hct (39.0-53.0) % MCV (80.0-100.0) fL MCH (25.0-35.0) pg MCHC (31.0-37.0) g/dL RDW (11.5-15.5) % Plt Count (150-450) k/uL MPV Neutrophils % % Lymphocytes % % Monocytes % % Eosinophils % % Basophils % % Neutrophils # (1.3-7.7) k/uL Lymphocytes # (1.0-4.8) k/uL Monocytes # (0-1.0) k/uL Eosinophils # (0-0.7) k/uL Basophils # (0-0.2) k/uL Hypochromasia Sodium (137-145) mmol/L Potassium (3.5-5.1) mmol/L Chloride (98-107) mmol/L Carbon Dioxide (22-30) mmol/L Anion Gap mmol/L BUN (9-20) mg/dL Creatinine (0.66-1.25) mg/dL Est GFR (CKD-EPI)AfAm (>60 ml/min/1.73 sqM) Est GFR (CKD-EPI)NonAf (>60 ml/min/1.73 sqM) Glucose (74-99) mg/dL POC Glucose (mg/dL) 443 H (75-99) mg/dL POC Glu Heat Treater Apprentice ID Camila Amor Plasma Lactic Acid Jason (0.7-2.0) mmol/L Calcium (8.4-10.2) mg/dL Total Bilirubin (0.2-1.3) mg/dL AST (17-59) U/L ALT (4-49) U/L Alkaline Phosphatase (38-126) U/L Creatine Kinase (55-170) U/L Total Protein (6.3-8.2) g/dL Albumin (3.5-5.0) g/dL Urine Color Urine Appearance (Clear) Urine pH (5.0-8.0) Ur Specific [place] (1.001-1.035) Urine Protein (Negative) Urine Glucose (UA) (Negative) Urine Ketones (Negative) Urine Blood (Negative) Urine Nitrite (Negative) Urine Bilirubin (Negative) Urine Urobilinogen (<2.0) mg/dL Ur Leukocyte Esterase (Negative) Urine RBC (0-5) /hpf Urine WBC (0-5) /hpf Hyaline Casts (0-2) /lpf Urine Mucus (None) /hpf Acetone, Qual (Negative) Disposition Clinical Impression: Hyperglycemia, Leg pain Disposition: HOME SELF-CARE Condition: Good Instructions (If sedation given, give patient instructions): Diabetic Hyperglycemia (ED), Leg Pain (ED) Additional Instructions: Follow-up she primary care physician first thing in the morning. Continue home pain medications as directed. Monitor blood sugars closely and take insulin as directed. Return to the emergency room for any new, worsening, or concerning symptoms. Is patient prescribed a controlled substance at d/c from ED?: No Referrals: None,Stated [Primary Care Provider] - 1-2 days Time of Disposition: 03:24
[2020-11-17 02:22] LABS: Glucose,Whole Blood 514 mg/dL (75-99)
[2020-11-17 03:05] LABS: Glucose,Whole Blood 443 mg/dL (75-99)
[2020-11-17] MEDS ORDERED: HYDROmorphone 0.5 MG/0.5 ML SYRINGE IVP STA (03:23)
[2020-11-17] MEDS ORDERED: SODIUM CHLORIDE 0.9% 1,000 ML IV STA (03:37)
[2020-11-17] MEDS ORDERED: SODIUM CHLORIDE 0.9% 500 ML 500 ML IV STA (03:37)
[2020-11-17] MEDS ORDERED: NALOXONE 0.4 MG/ML 1 ML VIAL IV PRN (03:44)
--- NOTE | 2020-11-17 03:46 | ED ---
Medical Decision Making - Medical Decision Making 44 male D to the ER F for evaluation patient presents today for evaluation regards to elevated blood sugar not feeling well pain no bili to amply at home. Patient blood sugar remained significantly elevated despite treatment here in the ER. Patient will be admitted for blood sugar monitoring and control, evaluation by physical therapy for possible rehabilitation - Lab Data Result diagrams: 11/17/20 00:51 11/17/20 00:51 Lab Results 11/17/20 11/17/20 11/17/20 Range/Units 00:51 00:51 00:51 WBC 7.2 (3.8-10.6) k/uL RBC 4.68 (4.30-5.90) m/uL Hgb 13.3 (13.0-17.5) gm/dL Hct 41.9 (39.0-53.0) % MCV 89.7 (80.0-100.0) fL MCH 28.4 (25.0-35.0) pg MCHC 31.7 (31.0-37.0) g/dL RDW 13.9 (11.5-15.5) % Plt Count 317 (150-450) k/uL MPV 6.8 Neutrophils % 61 % Lymphocytes % 22 % Monocytes % 6 % Eosinophils % 8 % Basophils % 1 % Neutrophils # 4.4 (1.3-7.7) k/uL Lymphocytes # 1.6 (1.0-4.8) k/uL Monocytes # 0.4 (0-1.0) k/uL Eosinophils # 0.6 (0-0.7) k/uL Basophils # 0.1 (0-0.2) k/uL Hypochromasia Slight Sodium 136 L (137-145) mmol/L Potassium 3.9 (3.5-5.1) mmol/L Chloride 109 H (98-107) mmol/L Carbon Dioxide 26 (22-30) mmol/L Anion Gap 1 mmol/L BUN 23 H (9-20) mg/dL Creatinine 1.22 (0.66-1.25) mg/dL Est GFR (CKD-EPI)AfAm 84 (>60 ml/min/1.73 sqM) Est GFR (CKD-EPI)NonAf 73 (>60 ml/min/1.73 sqM) Glucose 624 H* (74-99) mg/dL POC Glucose (mg/dL) (75-99) mg/dL POC Glu Conservation Officer ID Plasma Lactic Acid Jason 0.8 (0.7-2.0) mmol/L Calcium 8.4 (8.4-10.2) mg/dL Total Bilirubin 0.3 (0.2-1.3) mg/dL AST 22 (17-59) U/L ALT 46 (4-49) U/L Alkaline Phosphatase 158 H (38-126) U/L Creatine Kinase 614 H (55-170) U/L Total Protein 5.8 L (6.3-8.2) g/dL Albumin 2.5 L (3.5-5.0) g/dL Urine Color Urine Appearance (Clear) Urine pH (5.0-8.0) Ur Specific [place] (1.001-1.035) Urine Protein (Negative) Urine Glucose (UA) (Negative) Urine Ketones (Negative) Urine Blood (Negative) Urine Nitrite (Negative) Urine Bilirubin (Negative) Urine Urobilinogen (<2.0) mg/dL Ur Leukocyte Esterase (Negative) Urine RBC (0-5) /hpf Urine WBC (0-5) /hpf Hyaline Casts (0-2) /lpf Urine Mucus (None) /hpf Acetone, Qual (Negative) 11/17/20 11/17/20 11/17/20 Range/Units 01:30 01:30 02:20 WBC (3.8-10.6) k/uL RBC (4.30-5.90) m/uL Hgb (13.0-17.5) gm/dL Hct (39.0-53.0) % MCV (80.0-100.0) fL MCH (25.0-35.0) pg MCHC (31.0-37.0) g/dL RDW (11.5-15.5) % Plt Count (150-450) k/uL MPV Neutrophils % % Lymphocytes % % Monocytes % % Eosinophils % % Basophils % % Neutrophils # (1.3-7.7) k/uL Lymphocytes # (1.0-4.8) k/uL Monocytes # (0-1.0) k/uL Eosinophils # (0-0.7) k/uL Basophils # (0-0.2) k/uL Hypochromasia Sodium (137-145) mmol/L Potassium (3.5-5.1) mmol/L Chloride (98-107) mmol/L Carbon Dioxide (22-30) mmol/L Anion Gap mmol/L BUN (9-20) mg/dL Creatinine (0.66-1.25) mg/dL Est GFR (CKD-EPI)AfAm (>60 ml/min/1.73 sqM) Est GFR (CKD-EPI)NonAf (>60 ml/min/1.73 sqM) Glucose (74-99) mg/dL POC Glucose (mg/dL) 514 H (75-99) mg/dL POC Glu Conservation Officer ID Driss Lopez Plasma Lactic Acid Jason (0.7-2.0) mmol/L Calcium (8.4-10.2) mg/dL Total Bilirubin (0.2-1.3) mg/dL AST (17-59) U/L ALT (4-49) U/L Alkaline Phosphatase (38-126) U/L Creatine Kinase (55-170) U/L Total Protein (6.3-8.2) g/dL Albumin (3.5-5.0) g/dL Urine Color Light Yellow Urine Appearance Clear (Clear) Urine pH 6.5 (5.0-8.0) Ur Specific [place] 1.031 (1.001-1.035) Urine Protein 3+ H (Negative) Urine Glucose (UA) 4+ H (Negative) Urine Ketones Negative (Negative) Urine Blood Moderate H (Negative) Urine Nitrite Negative (Negative) Urine Bilirubin Negative (Negative) Urine Urobilinogen <2.0 (<2.0) mg/dL Ur Leukocyte Esterase Negative (Negative) Urine RBC 13 H (0-5) /hpf Urine WBC 4 (0-5) /hpf Hyaline Casts 1 (0-2) /lpf Urine Mucus Rare H (None) /hpf Acetone, Qual Negative (Negative) 11/17/20 Range/Units 03:04 WBC (3.8-10.6) k/uL RBC (4.30-5.90) m/uL Hgb (13.0-17.5) gm/dL Hct (39.0-53.0) % MCV (80.0-100.0) fL MCH (25.0-35.0) pg MCHC (31.0-37.0) g/dL RDW (11.5-15.5) % Plt Count (150-450) k/uL MPV Neutrophils % % Lymphocytes % % Monocytes % % Eosinophils % % Basophils % % Neutrophils # (1.3-7.7) k/uL Lymphocytes # (1.0-4.8) k/uL Monocytes # (0-1.0) k/uL Eosinophils # (0-0.7) k/uL Basophils # (0-0.2) k/uL Hypochromasia Sodium (137-145) mmol/L Potassium (3.5-5.1) mmol/L Chloride (98-107) mmol/L Carbon Dioxide (22-30) mmol/L Anion Gap mmol/L BUN (9-20) mg/dL Creatinine (0.66-1.25) mg/dL Est GFR (CKD-EPI)AfAm (>60 ml/min/1.73 sqM) Est GFR (CKD-EPI)NonAf (>60 ml/min/1.73 sqM) Glucose (74-99) mg/dL POC Glucose (mg/dL) 443 H (75-99) mg/dL POC Glu Conservation Officer ID Camila Amor Plasma Lactic Acid Jason (0.7-2.0) mmol/L Calcium (8.4-10.2) mg/dL Total Bilirubin (0.2-1.3) mg/dL AST (17-59) U/L ALT (4-49) U/L Alkaline Phosphatase (38-126) U/L Creatine Kinase (55-170) U/L Total Protein (6.3-8.2) g/dL Albumin (3.5-5.0) g/dL Urine Color Urine Appearance (Clear) Urine pH (5.0-8.0) Ur Specific [place] (1.001-1.035) Urine Protein (Negative) Urine Glucose (UA) (Negative) Urine Ketones (Negative) Urine Blood (Negative) Urine Nitrite (Negative) Urine Bilirubin (Negative) Urine Urobilinogen (<2.0) mg/dL Ur Leukocyte Esterase (Negative) Urine RBC (0-5) /hpf Urine WBC (0-5) /hpf Hyaline Casts (0-2) /lpf Urine Mucus (None) /hpf Acetone, Qual (Negative) Disposition Clinical Impression: Hyperglycemia, Leg pain, Weakness Disposition: ADMITTED IP TO THIS HOSP Condition: Good Instructions (If sedation given, give patient instructions): Diabetic Hyperglycemia (ED), Leg Pain (ED) Additional Instructions: Follow-up she primary care physician first thing in the morning. Continue home pain medications as directed. Monitor blood sugars closely and take insulin as directed. Return to the emergency room for any new, worsening, or concerning symptoms. Referrals: None,Stated [Primary Care Provider] - 1-2 days
[2020-11-17 04:07] LABS: Glucose,Whole Blood 390 mg/dL (75-99)
[2020-11-17 05:13] LABS: Glucose,Whole Blood 267 mg/dL (75-99)
[2020-11-17] MEDS ORDERED: SENNOSIDES 8.6 MG TAB PO PRN (07:58)
[2020-11-17] MEDS ORDERED: HYDROcodone/APAP 7.5-325MG 1 EACH TAB PO PRN (07:58)
[2020-11-17] MEDS ORDERED: NITROGLYCERIN SL TABS 0.4 MG TAB SUBLINGUAL PRN (07:58)
[2020-11-17] MEDS: HYDROmorphone 1 MG/ML 1 ML SYRINGE IVP PRN ×4 (09:05→21:10)
[2020-11-17] MEDS: ASPIRIN 81 MG PO SCH ×2 (09:06→20:31)
[2020-11-17] MEDS: ISOSORBIDE MONONITRATE ER 30 MG TAB.ER.24H PO SCH (09:06)
[2020-11-17] MEDS: METOPROLOL SUCCINATE (ER) 25 MG TAB.ER.24H PO SCH (09:06)
[2020-11-17 11:34] LABS: Glucose,Whole Blood 113 mg/dL (75-99)
[2020-11-17 13:29] LABS: Cholesterol 279 mg/dL (<200); HDL Cholesterol 79 mg/dL (40-60); Triglycerides 441 mg/dL (<150)
--- NOTE | 2020-11-17 14:53 | US ---
EXAMINATION TYPE: US venous doppler duplex LE DATE OF EXAM: 11/17/2020 1:53 PM COMPARISON: NONE CLINICAL HISTORY: edema. swollen bilat legs SIDE PERFORMED: Bilateral TECHNIQUE: The lower extremity deep venous system is examined utilizing real time linear array sonog elvin with graded compression, doppler sonography and color-flow sonography. VESSELS IMAGED: Common Femoral Vein Deep Femoral Vein Greater Saphenous Vein * Femoral Vein Popliteal Vein Small Saphenous Vein * Proximal Calf Veins (* superficial vessels) Right Leg: Negative for DVT Left Leg: Negative for DVT IMPRESSION: Grayscale, color doppler, spectral doppler imaging performed of the deep veins of the lo wer extremities. There is normal flow, compressibility, vascular waveforms.
[2020-11-17 17:04] LABS: Glucose,Whole Blood 118 mg/dL (75-99)
[2020-11-17] MEDS: INSULN ASP PRT/INSULIN ASPART 100 UNIT/ML 10 ML VIAL SQ SCH (17:05)
[2020-11-17 20:16] LABS: Glucose,Whole Blood 153 mg/dL (75-99)
[2020-11-17] MEDS ORDERED: ATORVASTATIN 20 MG TAB PO SCH (21:00)
[2020-11-17 21:36] LABS: Hemoglobin A1C 6.7 % (4.0-6.0)
[2020-11-18] MEDS: HYDROmorphone 1 MG/ML 1 ML SYRINGE IVP PRN ×7 (02:47→21:45)
[2020-11-18 07:07] LABS: Glucose,Whole Blood 169 mg/dL (75-99)
[2020-11-18] MEDS: ISOSORBIDE MONONITRATE ER 30 MG TAB.ER.24H PO SCH (07:52)
[2020-11-18] MEDS: METOPROLOL SUCCINATE (ER) 25 MG TAB.ER.24H PO SCH (07:52)
[2020-11-18] MEDS: ASPIRIN 81 MG PO SCH ×2 (07:53→21:44)
[2020-11-18] MEDS: INSULN ASP PRT/INSULIN ASPART 100 UNIT/ML 10 ML VIAL SQ SCH ×2 (07:53→17:07)
[2020-11-18] MEDS: FUROSEMIDE 10 MG/ML 2 ML VIAL IV SCH ×2 (09:00→21:47)
[2020-11-18] MEDS: lisinopriL 5 MG TAB PO SCH (09:00)
--- NOTE | 2020-11-18 09:06 | HP ---
HISTORY AND PHYSICAL This is a 44-year-old white male who came in with generalized body pains. He has just got out of rehab 2 days ago for apparently a femur fracture he had in August. He just got out of rehab for that two days ago. He came in for severe pain and uncontrolled diabetes mellitus. His sugars are now under decent control. He has had severe pain and swelling in his legs, but he came in for uncontrolled diabetes mellitus and severe ir-retractable pain. He says his legs are more swollen than normal, making his pain way worse. HOME MEDICATIONS: 1. Aspirin 81 mg daily. 2. Lipitor 20 daily. 3. Justice 7.5 q.6. 4. Novolin 70/30, 20 units a.c. breakfast. 5. Imdur 30 mg daily. 6. Metoprolol ER 25 daily. 7. Nitro sublingual p.r.n. 8. Senokot 2 tabs p.r.n. ALLERGIES: Negative. REVIEW OF SYSTEMS: Fourteen-point review of systems negative. PAST MEDICAL HISTORY: Diabetes mellitus, GERD, pneumonia, bilateral neuropathy, bronchitis, insulin-dependent diabetes mellitus. SURGERIES: Orthopedic surgery. SOCIAL HISTORY: Former smoker. Past drug use marijuana, methamphetamine. FAMILY HISTORY: Father apparently is healthy. Mother myocardial infarction. PHYSICAL EXAMINATION: Temperature 97.8, heart rate 90 to 95, respiratory rate 18 to 24, blood pressure 140s to 160s over 90, O2 of 96% to 98% on room air. HEENT: Normocephalic, atraumatic. CARDIAC: S1, S2. GI: Soft. EXTREMITIES: Full range of motion. NEUROLOGIC: Cranial nerves are intact. PSYCH: Fair mood and affect. SKIN:Shows 2 to 3+ edema in the lower legs with redness of the bilateral legs. NEUROVASCULAR: Intact. Sugars were over 600 on admission. Acetone was negative. Gap was 1. He was given IV fluids and insulin. He was admitted for fluid parameters, Accu-Chek protocol and he had elevated CPK for early rhabdomyolysis secondary to possible dehydration. We are going to recheck his CPK today and get Physical Therapy working with him and see how he does. Fluid rehydration for an Accu-Chek protocol in the meantime. MMODL / IJN: [id number] /
[2020-11-18 10:40] LABS: African American GFR (CKD) 106.4 (60.0-200.0); Anion Gap 7.4 mmol/L (4.00-12.00); Carbon Dioxide 22.6 mmol/L (21.6-31.8); Non-African American GFR(CKD) 91.8 (60.0-200.0)
--- NOTE | 2020-11-18 10:58 | P.CRDCN ---
History of Present Illness History of present illness: HISTORY OF PRESENTING ILLNESS This is a pleasant 44-year-old male past medical history significant for diabetes mellitus, hypertension, dyslipidemia, GERD, neuropathy, former nicotine dependence, illicit drug use in the past and medical non-compliance. 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 We have been asked to see in consultation for heart failure. He was just discharge from rehab secondary to femur fracture. He had been staying with a friend since discharge. He presented to the hospital with symptoms of generalized weakness, lower extremity weakness and lower extremity pain not relieved by [place] at home. He was found to have elevated blood sugars and has been out of his home insulin. He is seen and examined resting comfortably laying flat in bed in no acute distress. He denies symptoms of chest pain, shortness of breath, dizziness or palpitations. He states his legs have been swollen for the previous 2-3 months with no improvement or worsening. No EKG or chest xray obtained on admission. Bilateral lower extremity doppler negative for DVT. Laboratory data reviewed, CBC unremarkable, sodium 144, potassium 4.0, creatinine 1.0, hgb A1C 6.7, proBNP 5640, total cholesterol 279 and triglycerides 441. Current daily cardiac medications include aspirin 81 mg BID, atorvastatin 20 mg daily, imdur 30 mg daily and toprol 25 mg daily. Recent echocardiogram obtained 08/2020 revealed preserved LV systolic function with EF 55-60% with mild MR and mild TR. Dobutamine stress test was inconclusive secondary to inability to achieve target heart rate however at achieved heart rate there was good augmentation of the LV. REVIEW OF SYSTEMS At the time of my exam: CONSTITUTIONAL: Denies fever or chills. CARDIOVASCULAR: Denies chest pain, shortness of breath, orthopnea, PND or palpitations. RESPIRATORY: Denies cough. GASTROINTESTINAL: Denies abdominal pain, diarrhea, constipation, nausea or vomiting. MUSCULOSKELETAL: Complains of lower extremity pain and swelling. NEUROLOGIC: Denies numbness, tingling, headacbe or weakness. ENDOCRINE: Denies fatigue, weight change, polydipsia or polyurina. GENITOURINARY: Denies burning, hematuria or urgency with micturation. HEMATOLOGIC: Denies history of anemia or bleeding. PHYSICAL EXAMINATION Blood pressure 121/72 heart rate 92 afebrile and maintaining oxygen saturation on room air. CONSTITUTIONAL: No apparent distress. HEENT: Head is normocephalic. Pupils are equal, round. Sclerae anicteric. Mucous membranes of the mouth are moist. No JVD. No carotid bruit. CHEST EXAMINATION: Lungs are clear to auscultation. No chest wall tenderness is noted on palpation or with deep breathing. HEART EXAMINATION: Regular rate and rhythm. S1, S2 heard. No murmurs, gallops or rub. ABDOMEN: Soft, nontender. Positive bowel sounds. EXTREMITIES: 2+ peripheral pulses, bilateral lower extremity 2+ pitting edema and no calf tenderness. NEUROLOGIC EXAMINATION: Patient is awake, alert and oriented x3. ASSESSMENT Lower extremity swelling Diabetes mellitus Hypertension Dyslipidemia Recent femur fracture s/p rehabilitation Former nicotine dependence History of illicit drug use PLAN Exact etiology of lower extremity unclear. He does not appear clinically to be in heart failure. He has no shortness of breath and is laying flat in bed. Obtain baseline EKG and chest xray. Discontinue imdur. Increase atorvastatin to 40 mg daily. Add lisinopril 5 mg daily. Thank you kindly for this consultation. Nurse Practitioner note has been reviewed, I agree with a documented findings and plan of care. Patient was seen and examined. 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 History of Any Multi-Drug Resistant Organisms: None Reported Past Surgical History: Orthopedic Surgery Past Anesthesia/Blood Transfusion Reactions: No Reported Reaction, Motion Sickness Additional Past Anesthesia/Blood Transfusion Reaction / Comment(s): Pt has clausterphobia Past Psychological History: No Psychological Hx Reported Additional Psychological History / Comment(s): Pt states he is homeless, sleeps in his car or on people's couches. He states his glucometer is broken, he ran out of insulin 2-3 days ago. He states he does not have a PCP and has not had one for months. He states he has no money. Smoking Status: Former smoker Past Alcohol Use History: None Reported Additional Past Alcohol Use History / Comment(s): Pt started smoking in 1996 and states he was a light smoker, he quit in 2018. Past Drug Use History: Marijuana, Methamphetamine Additional Drug Use History / Comment(s): Pt states he occasionally uses marijuana and meth. - Past Family History Father Family Medical History: No Reported History Additional Family Medical History / Comment(s): Father is healthy Mother Family Medical History: Myocardial Infarction (NH) Additional Family Medical History / Comment(s): Mother of a NH in her 60s. Medications and Allergies Home Medications Medication Instructions Recorded Confirmed Type Aspirin [Adult Low Dose Aspirin EC] 81 mg PO BID 30 Days #60 tablet. 09/05/20 11/17/20 Rx Atorvastatin [Lipitor] 20 mg PO HS #30 tab 09/05/20 11/17/20 Rx HYDROcodone/APAP 7.5-325MG [[place] 1 - 2 tab PO Q6H PRN #32 tab 09/05/20 11/17/20 Rx 7.5-325] Insuln Asp Prt/Insulin Aspart 10 unit SQ AC-SUPPER vial 09/05/20 11/17/20 Rx [NovoLOG MIX 70-30 VIAL] Insuln Asp Prt/Insulin Aspart 20 unit SQ AC-BRKFST vial 09/05/20 11/17/20 Rx [NovoLOG MIX 70-30 VIAL] Isosorbide Mononitrate ER [Imdur] 30 mg PO DAILY #30 tab.er.24h 09/05/20 11/17/20 Rx Metoprolol Succinate (ER) [Toprol 25 mg PO DAILY #30 tab.er.24h 09/05/20 11/17/20 Rx XL] Nitroglycerin Sl Tabs [Nitrostat] 0.4 mg SUBLINGUAL Q5M PRN #5 tab 09/05/20 0 11/17/20 Rx Sennosides [Senokot] 2 tab PO DAILY PRN #60 tablet 09/05/20 11/17/20 Rx Allergies Allergy/AdvReac Type Severity Reaction Status Date / Time No Known Allergies Allergy Verified 11/17/20 07:52 Physical Exam Vitals: Vital Signs Temp Pulse Resp BP Pulse Ox 11/18/20 05:23 97.9 F 92 18 121/72 97 11/18/20 03:15 86 18 11/17/20 20:39 86 18 11/17/20 20:30 97.9 F 86 18 110/67 98 11/17/20 15:00 96.3 F L 82 18 110/61 99 Intake and Output 11/17/20 11/18/2011/18/21 22:59 06:59 14:59 Output Total 150 Balance -150 Output: Urine 150 Other: Voiding Method Urinal Urinal Urinal # Voids 1 1 Results 11/17/20 00:51 11/18/20 05:15 Lipids 11/17/20 Range/Units 00:50 Triglycerides 441 H (<150) mg/dL Cholesterol 279 H (<200) mg/dL HDL Cholesterol 79 H (40-60) mg/dL Comprehensive Metabolic Panel 11/18/20 Range/Units 05:15 Sodium 144 (135-145) mmol/L Potassium 4.0 (3.5-5.5) mmol/L Chloride 114 H (96-109) mmol/L Carbon Dioxide 22.6 (21.6-31.8) mmol/L BUN 26.0 (9.0-27.0) mg/dL Creatinine 1.0 (0.6-1.5) mg/dL Glucose 169 H (70-110) mg/dL Calcium 8.0 L (8.7-10.3) mg/dL Current Medications Generic Name Dose Route Start Last Admin Trade Name Freq PRN Reason Stop Dose Admin Hydrocodone Bitart/Acetaminophen 1 - 2 each 11/17/20 07:58 Hydrocodone/Apap 7.5-325mg 1 Each Tab PO Q6H PRN Pain Aspirin 81 mg 11/17/20 09:00 11/18/20 07:53 Aspirin 81 Mg PO 81 mg BID TINO Administration Atorvastatin Calcium 40 mg 11/18/20 21:00 Atorvastatin 20 Mg Tab PO HS TINO Furosemide 20 mg 11/18/20 09:00 11/18/20 09:00 Furosemide 10 Mg/Ml 2 Ml Vial IV 20 mg Q12HR TINO Administration Hydromorphone HCl 1 mg 11/17/20 03:44 11/18/20 09:00 Hydromorphone 1 Mg/Ml 1 Ml Syringe IVP 1 mg Q3HR PRN Administration Moderate Pain Insulin Aspart 10 unit 11/17/20 17:30 11/17/20 17:05 Insuln Asp Prt/Insulin Aspart 100 Unit/Ml 10 Ml Vial SQ Not Given AC-SUPPER TION Insulin Aspart 20 unit 11/18/20 07:30 11/18/20 07:53 Insuln Asp Prt/Insulin Aspart 100 Unit/Ml 10 Ml Vial SQ 20 unit AC-BRKFST TINO Administration Lisinopril 5 mg 11/18/20 09:00 11/18/20 09:00 Lisinopril 5 Mg Tab PO 5 mg DAILY TINO Administration Metoprolol Succinate 25 mg 11/17/20 09:00 11/18/20 07:52 Metoprolol Succinate (Er) 25 Mg Tab.Er.24h PO 25 mg DAILY TINO Administration Naloxone HCl 0.2 mg 11/17/20 03:44 Naloxone 0.4 Mg/Ml 1 Ml Vial IV Q2M PRN Opioid Reversal Nitroglycerin 0.4 mg 11/17/20 07:58 Nitroglycerin Sl Tabs 0.4 Mg Tab SUBLINGUAL Q5M PRN Chest Pain Senna 8.6 mg 11/17/20 07:58 Sennosides 8.6 Mg Tab PO DAILY PRN Constipation Intake and Output 11/17/20 11/18/20 11/18/20 22:59 06:59 14:59 Output Total 150 Balance -150 Output: Urine 150 Other: Voiding Method Urinal Urinal Urinal # Voids 1 1 11/17/20 00:51 11/18/20 05:15
[2020-11-18 12:07] LABS: Glucose,Whole Blood 95 mg/dL (75-99)
--- NOTE | 2020-11-18 12:40 | XR ---
EXAMINATION TYPE: XR chest 2V DATE OF EXAM: 11/18/2020 COMPARISON: 08/30/2020 INDICATION: Lower extremity swelling TECHNIQUE: Frontal and lateral views of the chest are obtained. FINDINGS: The heart size is normal. The pulmonary vasculature is prominent. Diffuse increased lung markings are present. Correlate for early volume overload. IMPRESSION: 1. Conical correlation recommended for early volume overload.
[2020-11-18 16:55] LABS: Glucose,Whole Blood 76 mg/dL (75-99)
[2020-11-18 19:25] LABS: Glucose,Whole Blood 52 mg/dL (75-99)
[2020-11-18 19:34] LABS: Glucose,Whole Blood 82 mg/dL (75-99)
[2020-11-18] MEDS: ATORVASTATIN 20 MG TAB PO SCH (21:44)
--- NOTE | 2020-11-18 23:25 | PN ---
PROGRESS NOTE Cardiology saw the patient today. The patient was started on IV Lasix for large amount of edema in his legs. He had Dopplers of his legs which were negative. Sodium is 144, potassium 4.0. Creatinine is 1.0. ejection fraction is 55% to 60%. Vital signs stable. Afebrile. Cardiovascular: S1, S2. Lungs: Rales at the bases. Hematology: Negative Homans. GI: Soft. ASSESSMENT: 1. Status post femur fracture. 2. Dyslipidemia. 3. Hypertension. 4. Diabetes mellitus. 5. Lower extremity swelling. Continue current treatment. Possible discharge home tomorrow. We are going to add lisinopril 5, atorvastatin 40, stop his Imdur, check a chest x-ray. Please see further orders. MMODL / IJN: [id number] /
[2020-11-19] MEDS: HYDROmorphone 1 MG/ML 1 ML SYRINGE IVP PRN ×7 (01:02→20:53)
[2020-11-19 07:10] LABS: Basophils # (A) 0.1 k/uL (0-0.2); Basophils % (A) 2 %; Eosinophils # (A) 0.4 k/uL (0-0.7); Eosinophils % (A) 6 %; HCT 39.6 % (39.0-53.0); HGB 12.7 gm/dL (13.0-17.5); Lymphocytes # (A) 2.1 k/uL (1.0-4.8); Lymphocytes % (A) 33 %; MCH 28.7 pg (25.0-35.0); MCHC 32.2 g/dL (31.0-37.0); MCV 89.2 fL (80.0-100.0); Mean Platelet Volume 6.4; Monocytes # (A) 0.4 k/uL (0-1.0); Monocytes % (A) 6 %; Neutrophils # (A) 3.4 k/uL (1.3-7.7); Neutrophils % (A) 52 %; Platelet Count 291 k/uL (150-450); RBC 4.44 m/uL (4.30-5.90); WBC 6.6 k/uL (3.8-10.6)
[2020-11-19 07:29] LABS: Glucose,Whole Blood 89 mg/dL (75-99)
[2020-11-19] MEDS: lisinopriL 5 MG TAB PO SCH (07:50)
[2020-11-19] MEDS: FUROSEMIDE 10 MG/ML 2 ML VIAL IV SCH ×2 (07:50→20:04)
[2020-11-19] MEDS: ASPIRIN 81 MG PO SCH ×2 (07:50→20:04)
[2020-11-19] MEDS: METOPROLOL SUCCINATE (ER) 25 MG TAB.ER.24H PO SCH (07:50)
[2020-11-19] MEDS ORDERED: FUROSEMIDE 20 MG TAB PO STA (08:40)
[2020-11-19 09:54] LABS: Glucose,Whole Blood 124 mg/dL (75-99)
[2020-11-19] MEDS: INSULN ASP PRT/INSULIN ASPART 100 UNIT/ML 10 ML VIAL SQ SCH ×2 (09:57→19:32)
[2020-11-19 11:21] LABS: Glucose,Whole Blood 126 mg/dL (75-99)
--- NOTE | 2020-11-19 12:51 | ECHOF ---
Referral Reason:chf MEASUREMENTS -------- HEIGHT: 165.1 cm WEIGHT: 81.6 kg BP: IVSd: 0.7 cm (0.6 - 1.1) LVIDd: 5.0 cm (3.9 - 5.3) LVPWd: 0.8 cm (0.6 - 1.1) IVSs: 0.9 cm LVIDs: 4.2 cm LVPWs: 0.8 cm LAESV Index (A-L): 17.69 ml/m Ao Diam: 3.1 cm (2.0 - 3.7) AV Cusp: 1.9 cm (1.5 - 2.6) LA Diam: 2.9 cm (2.7 - 3.8) MV EXCURSION: 15.279 mm (> 18.000) MV EF SLOPE: 88 mm/s (70 - 150) EPSS: 1.9 cm MV E Vu: 0.65 m/s MV DecT: 153 ms MV A Vu: 1.07 m/s MV E/A Ratio: 0.60 RAP: 5.00 mmHg RVSP: 8.06 mmHg FINDINGS -------- Sinus rhythm. This was a technically adequate study. The left ventricular size is normal. Left ventricular wall thickness is normal. There is moderate global hypokinesis of LV . Overall left ventricular systolic function is moderately impaired with, an EF between 35 - 40 %. Normal LAP Grade 1 Diastolic Dysfunction The right ventricle is normal in size. The left atrial size is normal. Normal LA size by volume 22+/-6 ml/m2. The right atrial size is normal. The aortic valve is trileaflet, and appears structurally normal. No aortic stenosis or regurgitation. The mitral valve is normal. Mild mitral regurgitation is present. The tricuspid valve appears structurally normal. Mild tricuspid regurgitation present. Right vent ricular systolic pressure is normal at < 35 mmHg. There is no pulmonic regurgitation present. The aortic root size is normal. Normal inferior vena cava with normal inspiratory collapse consistent with estimated right atrial pre ssure of 5 mmHg. There is a trivial pericardial effusion present. CONCLUSIONS -------- 1. There is moderate global hypokinesis of LV . 2. Overall left ventricular systolic function is moderately impaired with, an EF between 35 - 40 %. 3. Normal LAP Grade 1 Diastolic Dysfunction 4. Normal LA size by volume 22+/-6 ml/m2. 5. The aortic valve is trileaflet, and appears structurally normal. No aortic stenosis or regurgitati on. 6. Mild mitral regurgitation is present. 7. Mild tricuspid regurgitation present. 8. There is a trivial pericardial effusion present. G[employer] TRUCK CRANE OPERATOR: Cassi Castañeda RDCS
[2020-11-19 12:53] VITALS: BMI 29.9
--- NOTE | 2020-11-19 13:59 | P.PN ---
Subjective HISTORY OF PRESENTING ILLNESS This is a pleasant 44-year-old male past medical history significant for diabetes mellitus, hypertension, dyslipidemia, GERD, neuropathy, former nicotine dependence, illicit drug use in the past and medical non-compliance. 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 He is seen and examined sitting up eating breakfast in no acute distress. He denies chest pain, shortness of breath, dizziness or palpitations. Lower extremity edema is ongoing and persistent with no real improvement and IV diuresis. Blood pressure 147/73 heart rate 87 afebrile maintaining oxygen saturation on room air. Renal function and electrolytes pending. Chest x-ray revealed volume overload. PHYSICAL EXAMINATION CONSTITUTIONAL: No apparent distress. HEENT: Head is normocephalic. Pupils are equal, round. Sclerae anicteric. Mucous membranes of the mouth are moist. No JVD. No carotid bruit. CHEST EXAMINATION: Lungs are clear to auscultation. No chest wall tenderness is noted on palpation or with deep breathing. HEART EXAMINATION: Regular rate and rhythm. S1, S2 heard. No murmurs, gallops or rub. EXTREMITIES: 2+ peripheral pulses, bilateral lower extremity 2+ pitting edema and no calf tenderness. ASSESSMENT Acute systolic heart failure Lower extremity swelling Diabetes mellitus Hypertension Dyslipidemia Recent femur fracture s/p rehabilitation Former nicotine dependence History of illicit drug use PLAN Decrease in LV function etiology is unclear at this time. He does not recall having any significant shortness of breath or chest pain. Continue IV diuresis. Follow renal function and electrolytes daily. Continue toprol and lisinopril as previously ordered. Nurse Practitioner note has been reviewed, I agree with a documented findings and plan of care. Patient was seen and examined. Objective - Vital Signs Vital signs: Vital Signs Temp 97.6 F 11/19/20 07:46 Pulse 87 11/19/20 07:46 Resp 16 11/19/20 07:46 BP 147/73 11/19/20 07:46 Pulse Ox 98 11/19/20 07:46 Intake & Output 11/18/20 11/19/20 11/19/20 18:59 06:59 18:59 Other: Voiding Method Urinal Toilet # Voids 1 1 # Bowel Movements 1 - Labs CBC & Chem 7: 11/19/20 06:41 11/18/20 05:15 Labs: Abnormal Lab Results - Last 24 Hours (Table) 11/18/20 11/19/20 11/19/20 Range/Units 19:05 06:41 09:53 Hgb 12.7 L (13.0-17.5) gm/dL POC Glucose (mg/dL) 52 L 124 H (75-99) mg/dL 11/19/20 Range/Units 11:13 Hgb (13.0-17.5) gm/dL POC Glucose (mg/dL) 126 H (75-99) mg/dL
[2020-11-19] MEDS ORDERED: FUROSEMIDE 20 MG TAB PO SCH (16:00)
[2020-11-19 16:35] LABS: African American GFR (CKD) 106.4 (60.0-200.0); Albumin 2.6 g/dL (3.80-4.90); Albumin/Globulin Ratio 1.08 (1.60-3.17); Anion Gap 7.5 mmol/L (4.00-12.00); Calcium 8.4 mg/dL (8.7-10.3); Carbon Dioxide 23.5 mmol/L (21.6-31.8); Globulin 2.4 g/dL (1.6-3.3); Non-African American GFR(CKD) 91.8 (60.0-200.0); Potassium 3.8 mmol/L (3.5-5.5); Total Bilirubin 0.1 mg/dL (0.2-1.2)
[2020-11-19 17:48] LABS: Glucose,Whole Blood 97 mg/dL (75-99)
[2020-11-19 19:14] LABS: Glucose,Whole Blood 117 mg/dL (75-99)
[2020-11-19] MEDS: ATORVASTATIN 20 MG TAB PO SCH (20:04)
--- NOTE | 2020-11-19 23:38 | PN ---
PROGRESS NOTE 44-year-old white male, hyperglycemia, generalized weakness. Was found to have ejection fraction 35% on his echocardiogram for which Cardiology held his discharge. He is on his NovoLog 70/30, 10 units for supper, 20 units for breakfast, Lipitor, Lasix 20 IV q.12, Toprol-XL 25. Cardiac allergy, we will reassess his systolic ejection fraction prior to discharge. Lungs are clear. Cardiovascular S1, S2. Hematology is 2+ edema bilaterally. Chest x-ray showed fluid overload. ASSESSMENT: 1. Acute systolic heart failure with peripheral edema. 2. Diabetes mellitus. 3. Hypertension. 4. Dyslipidemia. 5. Current femur fracture status post rehab. 6. Nicotine addiction. Wait for Cardiology to reassess his medications prior to discharge. Await for Cardiology's recommendations. MMODL / IJN: [id number] /
[2020-11-20] MEDS: HYDROmorphone 1 MG/ML 1 ML SYRINGE IVP PRN ×8 (00:09→22:13)
[2020-11-20 08:14] LABS: Glucose,Whole Blood 199 mg/dL (75-99)
[2020-11-20] MEDS: FUROSEMIDE 10 MG/ML 2 ML VIAL IV SCH (08:24)
[2020-11-20] MEDS: ASPIRIN 81 MG PO SCH ×2 (08:25→19:17)
[2020-11-20] MEDS: lisinopriL 5 MG TAB PO SCH (08:25)
[2020-11-20] MEDS: METOPROLOL SUCCINATE (ER) 25 MG TAB.ER.24H PO SCH (08:25)
[2020-11-20] MEDS: INSULN ASP PRT/INSULIN ASPART 100 UNIT/ML 10 ML VIAL SQ SCH ×2 (08:25→17:34)
[2020-11-20] MEDS: SPIRONOLACTONE 25 MG TAB PO SCH (08:30)
[2020-11-20] MEDS: FUROSEMIDE 10 MG/ML 4 ML VIAL IV SCH ×2 (08:30→19:17)
--- NOTE | 2020-11-20 09:44 | PN ---
PROGRESS NOTE Mr. Yang 44-year-old male with known history of hypertension, history of diabetes mellitus, and history of hyperlipidemia who presented with symptoms of lower extremities discomfort, back discomfort as well as progressive peripheral edema. He continued to be having peripheral edema although his breathing is a little bit better. He had a repeat echocardiogram performed yesterday that showed a drop in his systolic function compared with an echocardiogram that was obtained in July of 2020 with ejection fraction 35% to 40% with global hypokinesis and no significant valvular disease. He denies any dizziness or palpitation. He denies any nausea. He continues to be on Lasix for 20 mg IV q.12 hours, metoprolol succinate 25 mg daily, lisinopril 5 mg daily, insulin, and atorvastatin 40 mg daily in addition to an aspirin a day. PHYSICAL EXAMINATION: Blood pressure running in the one teens with the heart rate in the 90s. LUNGS: Clear. HEART: Regular rate and rhythm. S1, S2. No S3 with systolic murmur. No diastolic murmur. No rub. ABDOMEN: Soft, nontender. EXTREMITIES: +2 to 3 edema bilaterally. LAB DATA: His lab data is pending today. IMPRESSION: 1. Cardiomyopathy worsened compared to July, reason unclear. 2. Symptoms of congestive heart failure with impaired systolic function. 3. History of diabetes. 4. History of hyperlipidemia. 5. Chronic back discomfort. RECOMMENDATION: I have recommended to add to his regimen spironolactone 25 mg daily as well as increase the dose of his IV Lasix. Will to see if we can add Farxiga or Invokana to his regimen because of the history of diabetes and heart failure. Once he is stabilized, further recommendation will be made. In the meantime, will follow his renal function and follow his urinary output. MMODL / IJN: [id number] / MTDD
[2020-11-20 10:34] LABS: African American GFR (CKD) 106.4 (60.0-200.0); Anion Gap 7.1 mmol/L (4.00-12.00); Calcium 8.2 mg/dL (8.7-10.3); Carbon Dioxide 22.9 mmol/L (21.6-31.8); Non-African American GFR(CKD) 91.8 (60.0-200.0); Potassium 3.9 mmol/L (3.5-5.5)
[2020-11-20 11:38] LABS: Glucose,Whole Blood 196 mg/dL (75-99)
[2020-11-20 17:08] LABS: Glucose,Whole Blood 294 mg/dL (75-99)
[2020-11-20] MEDS: ATORVASTATIN 20 MG TAB PO SCH (19:17)
[2020-11-21] MEDS: HYDROmorphone 1 MG/ML 1 ML SYRINGE IVP PRN ×7 (01:21→21:15)
--- NOTE | 2020-11-21 06:57 | PN ---
PROGRESS NOTE A 44-year-old white male who has systolic CHF, low blood sugar. Sodium and potassium normal. Sugars are in the mid 100s to 200s. Cardiovascular S1-S2. Lungs clear. GI soft. Hematology negative Homans ASSESSMENT: 1. Systolic heart failure. 2. Acute diastolic heart failure versus possible systolic heart failure. Continue with Lasix IV. Continue PT OT. 3. Cardiomyopathy, worse. 4. Symptoms of congestive heart failure, impaired systolic function. 5. Diabetes. 6. Hypertension. 7. Chronic back discomfort. Continue current treatments. Possible discharge in the next few days. MMODL / IJN: [id number] /
[2020-11-21 07:22] LABS: Glucose,Whole Blood 274 mg/dL (75-99)
[2020-11-21] MEDS: INSULN ASP PRT/INSULIN ASPART 100 UNIT/ML 10 ML VIAL SQ SCH ×2 (07:36→17:29)
[2020-11-21] MEDS: ASPIRIN 81 MG PO SCH ×2 (09:13→21:14)
[2020-11-21] MEDS: METOPROLOL SUCCINATE (ER) 25 MG TAB.ER.24H PO SCH (09:14)
[2020-11-21] MEDS: FUROSEMIDE 10 MG/ML 4 ML VIAL IV SCH ×2 (09:14→21:15)
[2020-11-21] MEDS: lisinopriL 5 MG TAB PO SCH (09:14)
[2020-11-21] MEDS: SPIRONOLACTONE 25 MG TAB PO SCH (09:14)
[2020-11-21 09:56] LABS: African American GFR (CKD) 94.8 (60.0-200.0); Anion Gap 2.6 mmol/L (4.00-12.00); BUN/Creat Ratio 33.64 Ratio (12.00-20.00); Calcium 8.3 mg/dL (8.7-10.3); Carbon Dioxide 24.4 mmol/L (21.6-31.8); Non-African American GFR(CKD) 81.8 (60.0-200.0); Potassium 4.4 mmol/L (3.5-5.5)
--- NOTE | 2020-11-21 15:57 | P.PN ---
Subjective Progress Note Date: 11/21/20 This is a 44-year-old gentleman with history of hypertension, diabetes, and also hyperlipidemia who is admitted to the hospital with lower extremity discomfort and also back discomfort. He continues to have significant pain. He is also found to have edema and evidence of CHF and cardiomyopathy with an ejection fraction of 35-40%. Patient was initiated on beta blockers and also MARILYNN inhibitor along the diuretics. He is also on Aldactone. Patient has been drinking liberally. Advised to reduce the fluid intake to 2-3 L. Continue the diuretics. He denies any chest pain or shortness of breath. His main complaint is significant pain in the back and extremities Objective - Vital Signs Vital signs: Vital Signs Temp 97.8 F 11/21/20 14:46 Pulse 85 11/21/20 14:46 Resp 16 11/21/20 14:46 BP 126/74 11/21/20 14:46 Pulse Ox 97 11/21/20 14:46 Intake & Output 11/20/20 11/21/20 11/21/20 18:59 06:59 18:59 Intake Total 250 Balance 250 Weight 76.2 kg 75.1 kg Intake: Oral 250 Other: Voiding Method Toilet # Voids 1 - Exam GENERAL EXAM: Patient is alert and oriented and doesn't appear to be in any acute distress HEENT: Normocephalic. Normal reaction of pupils, equal size, normal range of extraocular motion. No erythema or exudates in the throat. NECK: No masses, no nuchal rigidity. CHEST: No chest wall deformity. LUNGS: Equal air entry with no crackles or wheeze. HEART: S1 and S2 normal with no audible mumurs or gallops. Regular rhythm, femorals equal on both sides.. ABDOMEN: No hepatosplenomegaly, normal bowel sounds, no guarding or rigidity. SKIN: No rashes CENTRAL NERVOUS SYSTEM: No focal deficits. EXTREMITIES: Noted bilateral edema - Labs CBC & Chem 7: 11/19/20 06:41 11/21/20 05:48 Labs: Abnormal Lab Results - Last 24 Hours (Table) 11/20/20 11/21/20 11/21/20 Range/Units 17:07 05:48 07:13 Chloride 115 H (96-109) mmol/L Anion Gap 2.60 L (4.00-12.00) mmol/L BUN 37.0 H (9.0-27.0) mg/dL BUN/Creatinine Ratio 33.64 H (12.00-20.00) Ratio Glucose 282 H (70-110) mg/dL POC Glucose (mg/dL) 294 H 274 H (75-99) mg/dL Calcium 8.3 L (8.7-10.3) mg/dL Assessment and Plan (1) Cardiomyopathy Current Visit: Yes Status: Acute Code(s): I42.9 - CARDIOMYOPATHY, UNSPECIFIED SNOMED Code(s): 54322676 (2) Leg pain Current Visit: Yes Status: Acute Code(s): M79.606 - PAIN IN LEG, UNSPECIFIED SNOMED Code(s): 26622169 (3) Combined congestive systolic and diastolic heart failure Current Visit: Yes Status: Acute Code(s): I50.40 - UNSP COMBINED SYSTOLIC AND DIASTOLIC (CONGESTIVE) HRT FAIL SNOMED Code(s): 78979647 (4) Essential hypertension Current Visit: Yes Status: Acute Code(s): I10 - ESSENTIAL (PRIMARY) HYPERTENSION SNOMED Code(s): 68981628 (5) Diabetes mellitus Current Visit: Yes Status: Acute Code(s): E11.9 - TYPE 2 DIABETES MELLITUS WITHOUT COMPLICATIONS SNOMED Code(s): 76398190 Plan: Continue current medical therapy. Moderate fluid restriction. Further recommendation depending upon the chemical course
[2020-11-21 17:04] LABS: Glucose,Whole Blood 252 mg/dL (75-99)
[2020-11-21 19:37] LABS: Glucose,Whole Blood 237 mg/dL (75-99)
[2020-11-21] MEDS: ATORVASTATIN 20 MG TAB PO SCH (21:14)
[2020-11-22] MEDS: HYDROmorphone 1 MG/ML 1 ML SYRINGE IVP PRN ×8 (00:50→23:00)
[2020-11-22 03:21] VITALS: RESP 16
--- NOTE | 2020-11-22 06:32 | PN ---
PROGRESS NOTE A 44-year-old white male with heart disease, ejection fraction 35-40 percent. Possibly increase his Lasix prior to going home. Still has a lot of fluid and swelling, some beta blockers, MARILYNN inhibitors, Aldactone, diuretics. Reduces fluid intake to 2-3 L. Cardiovascular S1-S2. Lungs clear. GI soft. Hematology negative Homans. Psych fair mood and affect. Extremities show 2 to 3+ edema. Labs reviewed. Hemoglobin 12.7. ASSESSMENT: 1. Cardiomyopathy with combined systolic-diastolic heart failure. 2. Leg pain. 3. Hypertension. 4. Diabetes mellitus. Continue fluid restriction, diuretics, possible discharge next 24 to 48 hours. MMODL / IJN: [id number] /
[2020-11-22] MEDS: INSULN ASP PRT/INSULIN ASPART 100 UNIT/ML 10 ML VIAL SQ SCH ×2 (07:42→17:34)
[2020-11-22 07:50] LABS: Glucose,Whole Blood 201 mg/dL (75-99)
[2020-11-22] MEDS: lisinopriL 5 MG TAB PO SCH (09:35)
[2020-11-22] MEDS: FUROSEMIDE 10 MG/ML 4 ML VIAL IV SCH ×2 (09:35→20:02)
[2020-11-22] MEDS: METOPROLOL SUCCINATE (ER) 25 MG TAB.ER.24H PO SCH (09:35)
[2020-11-22] MEDS: ASPIRIN 81 MG PO SCH ×2 (09:35→20:02)
[2020-11-22] MEDS: SPIRONOLACTONE 25 MG TAB PO SCH (09:35)
--- NOTE | 2020-11-22 11:08 | P.PN ---
Subjective Progress Note Date: 11/22/20 This is a 44-year-old gentleman with history of hypertension, diabetes, and also hyperlipidemia who is admitted to the hospital with lower extremity discomfort and also back discomfort. He continues to have significant pain. He is also found to have edema and evidence of CHF and cardiomyopathy with an ejection fraction of 35-40%. Patient was initiated on beta blockers and also MARILYNN inhibitor along the diuretics. He is also on Aldactone. Patient has been drinking liberally. Advised to reduce the fluid intake to 2-3 L. Continue the diuretics. He denies any chest pain or shortness of breath. His main complaint is significant pain in the back and extremities 11/22: Patient denies any shortness of breath at rest. He states this is improving. He does have some shortness of breath when he is ambulating. He states he continues to have lower extremity edema but this is also improving. He is complaining of significant leg pain and feels tired. Patient is trying to limit his oral fluid intake. He states that he has been urinating quite a bit. He denies having any cough. Patient states that his appetite is good, no nausea or vomiting. Patient's weight is down 6 kg since admission. Patient has been afebrile, heart rate in the 80s and 90s, blood pressure 101/67, pulse ox 90% on room air Objective - Vital Signs Vital signs: Vital Signs Temp 98.3 F 11/22/20 08:36 Pulse 94 11/22/20 08:36 Resp 16 11/22/20 08:36 BP 101/67 11/22/20 08:36 Pulse Ox 98 11/22/20 08:36 Intake & Output 11/21/20 11/22/20 11/22/20 18:59 06:59 18:59 Weight 75.1 kg Other: # Voids 1 - Exam GENERAL EXAM: Patient is alert and oriented and in resting in recliner with legs elevated HEENT: Normocephalic. Normal reaction of pupils, equal size, normal range of extraocular motion. No erythema or exudates in the throat. NECK: No masses, no nuchal rigidity. CHEST: No chest wall deformity. LUNGS: Equal air entry with no crackles or wheeze. HEART: S1 and S2 normal with no audible mumurs or gallops. Regular rhythm, femorals equal on both sides.. ABDOMEN: No hepatosplenomegaly, normal bowel sounds, no guarding or rigidity. SKIN: No rashes CENTRAL NERVOUS SYSTEM: No focal deficits. EXTREMITIES: Noted bilateral edema, 1+ - Labs CBC & Chem 7: 11/19/20 06:41 11/21/20 05:48 Labs: Abnormal Lab Results - Last 24 Hours (Table) 11/21/20 11/21/20 11/21/20 Range/Units 05:48 17:03 19:35 Chloride 115 H (96-109) mmol/L Anion Gap 2.60 L (4.00-12.00) mmol/L BUN 37.0 H (9.0-27.0) mg/dL BUN/Creatinine Ratio 33.64 H (12.00-20.00) Ratio Glucose 282 H (70-110) mg/dL POC Glucose (mg/dL) 252 H 237 H (75-99) mg/dL Calcium 8.3 L (8.7-10.3) mg/dL 11/22/20 Range/Units 07:48 Chloride (96-109) mmol/L Anion Gap (4.00-12.00) mmol/L BUN (9.0-27.0) mg/dL BUN/Creatinine Ratio (12.00-20.00) Ratio Glucose (70-110) mg/dL POC Glucose (mg/dL) 201 H (75-99) mg/dL Calcium (8.7-10.3) mg/dL Assessment and Plan Plan: ASSESSMENT Acute systolic heart failure Lower extremity swelling Diabetes mellitus Hypertension Dyslipidemia Recent femur fracture s/p rehabilitation Former nicotine dependence History of illicit drug use PLAN Decrease in LV function etiology is unclear at this time. He does not recall having any significant shortness of breath or chest pain. Continue IV Lasix 40 mg every 12 hours. Repeat BMP tomorrow. Monitor I&O and daily weights Continue toprol and lisinopril as previously ordered. Nurse practitioner note has been reviewed, I agree with documented findings and plan of care. Patient was seen and examined.
[2020-11-22 11:25] LABS: Glucose,Whole Blood 165 mg/dL (75-99)
--- NOTE | 2020-11-22 13:14 | PN ---
PROGRESS NOTE 44-year-old gentleman with hypertension, diabetes, dyslipidemia, admitted to the hospital with lower extremity discomfort, back discomfort, significant pain, evidence of CHF, cardiomyopathy, ejection fraction 35-40 percent. Initiated on beta blockers, MARILYNN inhibitors, diuretics, also on Aldactone. He is going to restrict his fluid a little bit. He is on Lasix 40 b.i.d. Temperature 98, pulse 94, respiratory 16 to 18, blood pressure 101 over 60s. White count 6.6, hemoglobin 12.7, BUN 37, creatinine 1.1. ASSESSMENT: 1. Acute systolic heart failure. 2. Lower extremity edema. 3. Diabetes mellitus. 4. Hypertension. 5. Dyslipidemia. 6. Recent femur fraction. 7. Nicotine addiction. 8. Illicit drug use. He is going to continue with the Lasix. BNP tomorrow. Possible discharge to rehab tomorrow. Continue Toprol, lisinopril. MMODL / IJN: [id number] /
[2020-11-22 16:54] LABS: Glucose,Whole Blood 290 mg/dL (75-99)
[2020-11-22] MEDS: ATORVASTATIN 20 MG TAB PO SCH (20:02)
[2020-11-22 23:22] LABS: Glucose,Whole Blood 302 mg/dL (75-99)
[2020-11-23] MEDS: HYDROmorphone 1 MG/ML 1 ML SYRINGE IVP PRN ×4 (01:57→11:13)
[2020-11-23 05:00] LABS: Basophils # (A) 0.1 k/uL (0-0.2); Basophils % (A) 1 %; Eosinophils # (A) 0.5 k/uL (0-0.7); Eosinophils % (A) 6 %; HCT 40.6 % (39.0-53.0); Lymphocytes # (A) 2.6 k/uL (1.0-4.8); Lymphocytes % (A) 30 %; MCH 28.3 pg (25.0-35.0); MCHC 32.2 g/dL (31.0-37.0); Mean Platelet Volume 6.5; Monocytes # (A) 0.5 k/uL (0-1.0); Monocytes % (A) 6 %; Neutrophils # (A) 4.9 k/uL (1.3-7.7); Neutrophils % (A) 56 %; Platelet Count 317 k/uL (150-450); RBC 4.61 m/uL (4.30-5.90); RDW 14.2 % (11.5-15.5); WBC 8.8 k/uL (3.8-10.6)
[2020-11-23 07:23] LABS: Glucose,Whole Blood 244 mg/dL (75-99)
[2020-11-23 07:29] VITALS: BP 124/79; PULSE 88; TEMP 97.8
[2020-11-23] MEDS: INSULN ASP PRT/INSULIN ASPART 100 UNIT/ML 10 ML VIAL SQ SCH (08:13)
[2020-11-23] MEDS ORDERED: FUROSEMIDE 40 MG TAB PO SCH (09:00)
[2020-11-23] MEDS ORDERED: METOPROLOL SUCCINATE (ER) 50 MG TAB.ER.24H PO SCH (09:00)
[2020-11-23 09:14] LABS: African American GFR (CKD) 106.4 (60.0-200.0); Albumin 2.9 g/dL (3.80-4.90); Albumin/Globulin Ratio 1.16 (1.60-3.17); Anion Gap 8.8 mmol/L (4.00-12.00); Calcium 8.8 mg/dL (8.7-10.3); Carbon Dioxide 25.2 mmol/L (21.6-31.8); Globulin 2.5 g/dL (1.6-3.3); Non-African American GFR(CKD) 91.8 (60.0-200.0); Potassium 4.7 mmol/L (3.5-5.5); Total Bilirubin 0.2 mg/dL (0.2-1.2); Total Protein 5.4 g/dL (6.2-8.2)
[2020-11-23] MEDS: SPIRONOLACTONE 25 MG TAB PO SCH (09:32)
[2020-11-23] MEDS: ASPIRIN 81 MG PO SCH (09:32)
[2020-11-23] MEDS: lisinopriL 5 MG TAB PO SCH (09:32)
--- NOTE | 2020-11-23 09:43 | PN ---
PROGRESS NOTE Mr. Yang is a 44-year-old male with known history of diabetes, hypertension, who presented with severe back and leg discomfort related to his hip fracture. He was noted to have evidence of CHF. His echocardiogram revealed mild to moderate cardiomyopathy. His breathing is stable. His peripheral edema is slightly better. He continues to have severe hip and back discomfort. He denies any dizziness or palpitation. He denies any nausea. He continues to be at this time on Lasix 40 mg IV q.12 hours, Lipitor 40 mg daily, aspirin once a day, insulin, lisinopril 5 mg daily, metoprolol succinate 25 mg daily and spironolactone 25 mg daily. PHYSICAL EXAMINATION: Blood pressure running in the 120/70 with a heart rate in the 80s. LUNGS: Clear. HEART: Regular rate and rhythm S1, S2. No S3. No rub. ABDOMEN: Soft, nontender. EXTREMITIES +1 edema noted bilaterally. LAB DATA: From today revealed a hemoglobin of 13. IMPRESSION: 1. Evidence of congestive heart failure with mild to moderate cardiomyopathy. 2. Hypertension. 3. Back and leg discomfort. 4. History of diabetes. RECOMMENDATION: I will increase the dose of his beta rosemarie, switch him to oral diuretic and continue the rest of his medication and check his renal function. The patient has lost about 6 pounds since admission. MMODL / IJN: [id number] /
[2020-11-23 11:44] LABS: Glucose,Whole Blood 157 mg/dL (75-99)
--- NOTE | 2020-11-23 13:09 | DS ---
DISCHARGE SUMMARY DISCHARGE DIAGNOSES: 1. Cardiomyopathy with combined systolic, diastolic heart failure. 2. Diabetes. 3. Hypertension. DISCHARGE MEDICINES: 1. Aldactone 25 mg daily. 2. Lasix 40 mg p.o. b.i.d. 3. Lisinopril 5 mg daily. 4. Imdur 30 mg daily. 5. Lipitor 20 mg daily. 6. Nitrostat sublingual 0.4 mg p.r.n. 7. NovoLog 70/30 20 units for breakfast and 10 units for supper. 8. Toprol-XL 25 mg 1 a day. 9. Aspirin 81 mg b.i.d. 10.Murchison 7.5 1-2 tabs every 6 hours. 11.Senokot 2 tabs daily. CONDITION: Stable. PROGNOSIS: Guarded. Ambulate as tolerated. 44-year-old white male who had recently had a left hip replacement, was found to have congestive heart failure with an ejection fraction 30 to 35% by echo, which was new for him. Unclear etiology. He was started on systolic with diastolic heart failure medications including Aldactone 25 mg daily, Lasix 40 mg b.i.d., Zestril 5 mg, beta blockers, Toprol-XL. Cardiology watched him. He was diuresed with IV Lasix for few days while in the hospital. Sodium and potassium are normal on discharge as well as his white count, hemoglobin. Sugars have been running 200-300s when he had better control that is as an outpatient. His creatinine is 1.0. GFR was 91. He will possibly have to go home to physical therapy place as he is not ambulating well. Otherwise home nursing. MMODL / IJN: [id number] /
== END 2020-11-23 14:53 | DRG 293 ==
LOC: EC 00:09 → 1SOBS 03:44 → 6NMEDSUR 19:11 → OBSVTOIN 11-19 14:49
PROVIDERS: ADMIT Family Medicine; ATTEND Family Medicine
DX: I11.0 Hypertensive heart disease with heart failure (principal); I50.41 Acute combined systolic (congestive) and diastolic (congestive) heart failure; I42.9 Cardiomyopathy, unspecified; E11.42 Type 2 diabetes mellitus with diabetic polyneuropathy; E11.65 Type 2 diabetes mellitus with hyperglycemia; Z79.4 Long term (current) use of insulin; K21.9 Gastro-esophageal reflux disease without esophagitis; E78.5 Hyperlipidemia, unspecified; I08.1 Rheumatic disorders of both mitral and tricuspid valves; T38.3X6A Underdosing of insulin and oral hypoglycemic [antidiabetic] drugs, initial encounter; Z79.899 Other long term (current) drug therapy; Z79.82 Long term (current) use of aspirin; Z87.01 Personal history of pneumonia (recurrent); Z96.642 Presence of left artificial hip joint; Z87.891 Personal history of nicotine dependence; Z98.890 Other specified postprocedural states; Z91.19 Patient's noncompliance with other medical treatment and regimen; Z59.0 Homelessness; Z82.49 Family history of ischemic heart disease and other diseases of the circulatory system
CPT/HCPCS: 36415; 71046; 80048; 80053; 80061; 81001; 82009; 82550; 83036; 83605; 83880; 85025; 93306; 93970; 96361; 96374; 96375; 96376; 99285